=== PATIENT | male | born 1980 | race Caucasian/White ===

== ENCOUNTER 2020-08-06 21:03 | Inpatient (IN) | payer BC, SELFPAY ==
[2020-08-11 02:04] VITALS: BMI 22.8
[2020-08-12 06:00] VITALS: BP 129/62; PULSE 85; RESP 14; TEMP 36.8; O2SAT 97
[2020-08-12 07:00] VITALS: BMI 22.4
[2020-08-12] MEDS: Cholecalciferol (Vitamin D3) 25 MCG TABLET 50 MCG PO (09:09)
[2020-08-12] MEDS: Multivitamin TABLET 1 TAB PO (09:10)
[2020-08-12] MEDS: risperiDONE 1 MG TABLET PO ×2 (09:10→21:05)
[2020-08-12 17:27] VITALS: BP 138/76; PULSE 83; TEMP 37.1
--- NOTE | 2020-08-12 17:56 | P.PNPSI_ITS ---
Assessment & Plan Assessment & Plan (1) Depressed mood: Status: Acute Code(s): R45.89 - Other symptoms and signs involving emotional state Assessment and Plan: Dilip and gunnar' Liaise with family Referrals (2) Suicidal ideation: Status: Acute Code(s): R45.851 - Suicidal ideations Assessment and Plan: Safety evaluation Refer to PHP Greater than 50% of the session was spent on counseling and/or coordination of care Subjective Subjective Date of Service: 08/12/20 Reason For Visit: Adjustment D/O Subjective Notes: Conditional Voluntary Interim History: Long is calmer and he is looking forward to going home. He will attend [facility] and he is excited about this. SW is working with family around ensuring he has no access to guns. Medication Compliance: Yes Side effects from medications: No Attending Groups: Yes Mental Status Exam Mental Status Exam Patient Appearance: Well Grooomed Patient Orientation: Person, Place, Time and Situation Level of Consciousness: Awake and Appropriate Patient Behavior: Appropriate, Passive and Good Eye Contact Mood Description: Apathetic, Withdrawn, Constricted, Depressed and Fearful Affect Description: Apathetic, Depressed, Fearful, Flat, Sad and Apprehensive Patient Cognition Impaired: No Ability to Follow Directions: Excellent Speech Pattern: Clear, Appropriate and Spontaneous Speech Memory Description: Normal for Patient Hallucinations: None Delusions: Not Present Thought Process: Intact Depressive Symptoms: Insomnia, Loss of Int. in Activity, Feelings of Worthle ssness and Hopelessness Judgement: Fair Diagnostics Vital Signs (24Hr): Vital Signs - 24 hr 08/12/20 06:00 08/12/20 17:27 Temperature 98.2 F 98.7 F Pulse Rate 85 83 Respiratory Rate 14 Blood Pressure 129/62 138/76 Pulse Oximetry 97 Body Mass Index 22.4 Labs Results: 08/06/20 15:53 08/06/20 15:53 Labs: Laboratory Results - last 48 hr 08/06/20 08/10/20 08/10/20 15:53 07:59 07:59 Estimat Average Glucose 111 Hemoglobin A1c 5.5 Triglycerides 73 Cholesterol 93 D LDL Cholesterol, Calc 40 HDL Cholesterol 39 Lyme Disease Screen <0.90 Lyme Progressive Test Not indicated Medications Medications Ambulatory Orders Medication Instructions Recorded aspirin 81 mg PO DAILY 08/11/20 atorvastatin 40 mg PO BEDTIME 08/11/20 cholecalciferol (vitamin D3) 50 mcg PO DAILY 08/11/20 multivitamin [Daily Multi-Vitamin] 1 tab PO DAILY 08/11/20 Allergies Allergies Allergy/AdvReac Type Severity Reaction Status Date / Time No Known Allergies Allergy Unverified 07/29/20 15:57 [No Known Allergies*] Inapsen Allergy Unknown Uncoded 07/01/20 00:00
[2020-08-12] MEDS: Atorvastatin Calcium 40 MG TABLET PO (21:05)
[2020-08-12] MEDS: Mirtazapine 15 MG TABLET PO (21:05)
[2020-08-12] MEDS: Aspirin 81 MG TAB.CHEW PO (21:05)
[2020-08-13 06:36] VITALS: BP 112/64; PULSE 67; RESP 14; TEMP 36.4; O2SAT 97
[2020-08-13] MEDS: Cholecalciferol (Vitamin D3) 25 MCG TABLET 50 MCG PO (08:57)
[2020-08-13] MEDS: risperiDONE 1 MG TABLET PO (08:58)
[2020-08-13] MEDS: Multivitamin TABLET 1 TAB PO (08:58)
--- NOTE | 2020-08-13 17:37 | P.DS_ITS ---
DS: Providers Provider Date of admission: 08/06/20 21:03 Primary care physician: Eileen Harris MD Consults: 08/11/20 02:14 Consult to Neurology Routine Consulting Provider: Faviola Rojas Reason for consultation: Acute change in mental status. Severe depression with SI. Paranoia. S/P COV Has provider been notified: Yes 08/11/20 02:18 Consult to Care Team Routine DS: Diagnosis Discharge Diagnosis (1) Depressed mood: Status: Acute (2) Suicidal ideation: Status: Acute Discharge Plan Discharge Anticipated Discharge Date/Time: 08/13/20 14:59 Patient Disposition: Home, Self-Care Referrals: [facility] PHP [Other] (The program is meeting virtually. Please create a [employer] account and call Mary Grajeda at [phone] ext [phone] with the address. She will sent an invite to you [employer] account for the assessment which is scheduled for 08/16/20 at 10AM with a plan to start PHP on 08/17/20 at 9AM ) Eileen Harris MD [Primary Care Provider] - (PLEASE FOLLOW UP WITH PCP) Anais Vyas MD [Physician] - 09/07/20 2:00 pm Discharge Medications: New mirtazapine 15 mg Tablet 15 mg PO BEDTIME Qty: 30 RF: 0 risperidone 1 mg Tablet 1 mg PO BID Qty: 60 RF: 0 Continued multivitamin [Daily Multi-Vitamin] Tablet 1 tab PO DAILY RF: 0 atorvastatin 40 mg Tablet 40 mg PO BEDTIME RF: 0 cholecalciferol (vitamin D3) 25 mcg (1,000 unit) Tablet 50 mcg PO DAILY RF: 0 aspirin 81 mg Tablet,Chewable 81 mg PO DAILY RF: 0 Discharge Orders: Discharge Order (Routine); Ordered 08/13/20 Ordered By: Anais Vyas Diet: advance to your usual diet Activity on Discharge: As tolerated Stand Alone Forms: Community Support Discharge Date/Time: 08/13/20 15:06 Visit Report Forms: Patient Portal Discharge page Care Plan Goals: Go to PHP Stay on medications Health Concerns: Depressed mood Plan of Treatment: PHP Medications
== END 2020-08-13 15:06 | disposition home or self-care (01) | DRG 754 ==
PROVIDERS: Admitting Provider Psychiatry & Neurology Psychiatry; Emergency Provider Emergency Medicine; PCP Internal Medicine; Visit Provider Psychiatry & Neurology Psychiatry
DX: F32.9 Major depressive disorder, single episode, unspecified (principal); R45.851 Suicidal ideations; F43.0 Acute stress reaction; E78.5 Hyperlipidemia, unspecified; Z20.828 Contact with and (suspected) exposure to other viral communicable diseases; Z86.19 Personal history of other infectious and parasitic diseases; Z79.82 Long term (current) use of aspirin; Z79.899 Other long term (current) drug therapy
CPT/HCPCS: 36415; 70551; 80051; 80061; 80076; 80307; 80320; 82565; 82947; 83036; 83735; 84443; 84520; 85025; 85652; 86140; 86618; 99285; U0003

== ENCOUNTER 2020-08-27 12:45 | Outpatient (RCR) | payer BC, SELFPAY ==
--- NOTE | 2020-08-17 12:23 | PC.NURSE ---
Patient is a 40 year old male who started the PHP program today. Patient was referred by [facility] where he was admitted for increase in depressive symptoms with SI and Plan to blow his head off. It was reported that the Care team worked with the patients family in removing guns from patients home. Pt was brought by ambulance to the ED d/t acute mental status changes including patient being non verbal with family and making SI statements. Pt reported to look malnourished and fatigued. 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 Patient also dx with Covid-19 in February 2020. Patient is alert and oriented x4. Calm and cooperative. Denied SI. Gave verbal permission to email a copy of his safety tool to him. Patient agreed to utilize this if feeling unsafe. Also, patient identified going to his family for help if feeling unsafe. Patient stated he is in the program to, feel good about myself . Completed assessement via telephone d/t pandemic.
--- NOTE | 2020-08-17 17:57 | HO.PS.ADMBH ---
HPI Chief Complaint: DEPRESSION Sources of Information: patient interviewed and chart reviewed HPI Narrative: 40 yo male, stepping down from [facility] admission which he reports was helpful. 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 Pt initiated Remeron 15 and Risperdal 1 mg bid. Reports he is tolerating regime and finds it helpful in sx mgt. 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 Currently on FMLA). Unsure what requirements work has for his return, they have sent paperwork to his he believes. Reports sleep is not too bad . The first night home from hospital he was up and down, however this is settling. Appetite is reported as normal . Energy is intact, pt asks if it is OK to hike with colleagues/friends-discussed. Past Psychiatric History: denies Medical Evaluation Reviewed: Yes [facility] Medical History Melanoma Family History: denies Social History: Lives with and children. 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 Reports drinking beer, socially, approximately once per month Trauma History: Affirms without detail Meds/Allergies Meds Home Medications Medication Instructions Recorded Confirmed Type aspirin 81 mg PO DAILY 08/11/20 08/17/20 History atorvastatin 40 mg PO BEDTIME 08/11/20 08/17/20 History cholecalciferol (vitamin D3) 50 mcg PO DAILY 08/11/20 08/17/20 History multivitamin [Daily Multi-Vitamin] 1 tab PO DAILY 08/11/20 08/17/20 History Allergies Allergies Allergy/AdvReac Type Severity Reaction Status Date / Time No Known Allergies Allergy Unverified 07/29/20 15:57 [No Known Allergies*] Inapsen Allergy Unknown Uncoded 07/01/20 00:00 Mental Status Exam Mental Status Exam Patient Orientation: Person, Place, Time and Situation Level of Consciousness: Awake, Appropriate and Alert Patient Behavior: Appropriate, Guarded, Cooperative and Anxious Mood Description: Constricted, Blunted and Apprehensive Affect Description: Constricted, Blunted and Apprehensive Patient Cognition Impaired: No Ability to Follow Directions: Excellent Speech Pattern: Clear, Appropriate and Spontaneous Speech Memory Description: Intact, Immediate Intact and Short Term Intact Hallucinations: None Delusions: Not Present Thought Process: Intact Thought Content: positive for Intact, positive for Logical, positive for Suicidal Ideation (denies) and positive for Homicidal Ideation (denies) Depressive Symptoms: Feelings of Guilt (relating to incident at work) Judgement: Good Judgement and Insight: Intact Assessment & Plan Patient educated on: medication risk/benefits (continue current regime, Risperdal 1 mg bid and Remeron 15 mg HS) and therapeutic strategies (continue PHP. Pt would like to return to work. We will review employer requriements) Informed Consent: understands Reason for continued partial hosp. stay Substantial Risk for: harm to self, inability to function and rapid decompensation Certification I certify that partial hospital treatment is medically necessary due to the symptoms and problems resulting from the patient's mental illness and the failure to treat the patient at the partial hospital level of care would likely result in the patient requiring inpatient psychiatric care which could not be prevented at a less intensive level of care.
--- NOTE | 2020-08-19 16:17 | PC.NURSE ---
I called and spoke to patient. I let him know about his appt with Anais Vyas. He said he already knew about this. I asked how he is doing, and he said he is doing well and would like to return to work as soon as possible. he said he has been engaging in sports-related events with his kids, and going on hikes, despite having not quite 100 percent of the energy he had prior to depressive episode. He reported he is not having any SI.
--- NOTE | 2020-08-20 15:40 | P.PNPSP_ITS ---
Subjective Subjective Date of Service: 08/20/20 Reason For Visit: DEPRESSION Interim History: Pt has asked to be discharged today to return to work on 10/23/20. He emailed [facility] paperwork to development writer. This was reviewed and discussed with team, Dr. Norman and Dr. Nicholas Cee who will meet with pt in out patient psychopharmacology. Call to pt to discuss. 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 I offered to write a letter, indicating his attendance from Aug.17- at the [facility] program to validate participation. I discussed my concern of his symptoms, hospitalization, and passive participation thus far. Pt seemed to understand these concerns and suggested he remain with the [facility] program which he will do. Team concurs. Review of Systems Review of Systems Yes all other systems are reviewed and are negative Mental Status Exam Mental Status Exam Patient Orientation: Person, Place, Time and Situation Level of Consciousness: Awake and Alert Patient Behavior: Guarded, Talkative, Cooperative, Passive and Anxious Mood Description: Withdrawn, Constricted and Blunted Affect Description: Withdrawn, Constricted and Blunted Patient Cognition Impaired: No Ability to Follow Directions: Excellent Speech Pattern: Clear, Impoverished, Appropriate, Spontaneous Speech, Coherent and Soft-Spoken Hallucinations: None Delusions: Not Present Thought Process: Intact Thought Content: positive for Suicidal Ideation (denies) Judgement: Fair Assessment & Plan Patient educated on: therapeutic strategies Informed Consent: understands and further education needed Reason for contiued partial hosp. stay Substantial Risk for: harm to self, harm to others, inability to function and rapid decompensation Certification I certify that partial hospital treatment is medically necessary due to the symptoms and problems resulting from the patient's mental illness and the failure to treat the patient at the partial hospital level of care would likely result in the patient requiring inpatient psychiatric care which could not be prevented at a less intensive level of care. Greater than 50% of the session was spent on counseling and/or coordination of care Discharge Plan Discharge Attending provider: Rosa Hammond Medications: No Action multivitamin [Daily Multi-Vitamin] Tablet 1 tab PO DAILY RF: 0 atorvastatin 40 mg Tablet 40 mg PO BEDTIME RF: 0 cholecalciferol (vitamin D3) 25 mcg (1,000 unit) Tablet 50 mcg PO DAILY RF: 0 aspirin 81 mg Tablet,Chewable 81 mg PO DAILY RF: 0 mirtazapine 15 mg Tablet 15 mg PO BEDTIME Qty: 30 RF: 0 risperidone 1 mg Tablet 1 mg PO BID Qty: 60 RF: 0
--- NOTE | 2020-08-24 16:49 | P.PNPSP_ITS ---
Subjective Subjective Date of Service: 08/24/20 Reason For Visit: DEPRESSION Interim History: Long continues in [facility]. Last week, he asked to return to work. Discussed concerns about this with pt. He decided to continue in [facility]. Today we completed [facility] paperwork for his review, approval and submission to employer. Pt was a full, active participant in that process, well engaged, asking relevant questions. Tentative date of return to work is 09/11/20. Pt will meet with Dr. Vyas on 09/09/20. Pt reports he has been spending time with family and outside. Medication Compliance: Yes Side effects from medications: No Attending Groups: Yes Review of Systems Review of Systems Yes all other systems are reviewed and are negative Psychiatric: Reports no additional psychiatric complaints and Reports suicidal ideation (denies) Mental Status Exam Mental Status Exam Patient Orientation: Person, Place, Time and Situation Level of Consciousness: Awake and Appropriate Patient Behavior: Appropriate Mood Description: Calm and Blunted Affect Description: Calm and Blunted Patient Cognition Impaired: No Ability to Follow Directions: Excellent Speech Pattern: Clear and Appropriate Memory Description: Intact Hallucinations: None Delusions: Not Present Thought Process: Intact Thought Content: positive for Intact Judgement: Good Assessment & Plan Patient educated on: therapeutic strategies Informed Consent: understands and further education needed Reason for contiued partial hosp. stay Substantial Risk for: harm to self, inability to function and rapid decompensation Certification I certify that partial hospital treatment is medically necessary due to the symptoms and problems resulting from the patient's mental illness and the failure to treat the patient at the partial hospital level of care would likely result in the patient requiring inpatient psychiatric care which could not be prevented at a less intensive level of care. Greater than 50% of the session was spent on counseling and/or coordination of care Discharge Plan Discharge Attending provider: Rosa Hammond Additional Instructions: Continue current regime Medications: No Action multivitamin [Daily Multi-Vitamin] Tablet 1 tab PO DAILY RF: 0 atorvastatin 40 mg Tablet 40 mg PO BEDTIME RF: 0 cholecalciferol (vitamin D3) 25 mcg (1,000 unit) Tablet 50 mcg PO DAILY RF: 0 aspirin 81 mg Tablet,Chewable 81 mg PO DAILY RF: 0 mirtazapine 15 mg Tablet 15 mg PO BEDTIME Qty: 30 RF: 0 risperidone 1 mg Tablet 1 mg PO BID Qty: 60 RF: 0
--- NOTE | 2020-08-27 15:14 | PC.NURSE ---
After speaking with patient, I emailed him a list of aftercare options for individual therapy. I let him know that [facility] has a year long wait list for people with BC/BS. Also, I gave him the number for free therapy services from the [facility].
--- NOTE | 2020-08-28 00:11 | P.PNPSP_ITS ---
Subjective Subjective Reason For Visit: DEPRESSION Interim History: Long continues in PHP. Last week, he asked to return to work. Discussed concerns about this with pt. He decided to continue in [facility] Today we completed [facility] paperwork for his review, approval and submission to employer. Pt was a full, active participant in that process, well engaged, asking relevant questions. Tentative date of return to work is 09/11/20. Pt will meet with Dr. Vyas on 09/09/20. Pt reports he has been spending time with family and outside. current note For 08/31/2020 patient future oriented stable states safe for discharge and transition to Dr. Anais fagan his outpatient psychiatrist feels mirtazapine and Risperdal have been helpful no concerns sleep appetite concentration mood have much improved states he is feeling much better no self-harming thoughts Mental Status Exam Mental Status Exam Patient Orientation: Person, Place, Time and Situation Level of Consciousness: Awake and Appropriate Patient Behavior: Appropriate Mood Description: Calm and Blunted Affect Description: Calm and Blunted Patient Cognition Impaired: No Ability to Follow Directions: Excellent Speech Pattern: Clear and Appropriate Memory Description: Intact Assessment & Plan Assessment & Plan (1) Depressed mood: Status: Acute Code(s): R45.89 - Other symptoms and signs involving emotional state Assessment and Plan: pt stble for d/c f/u dr anais fagan Patient educated on: diagnosis and medication risk/benefits Informed Consent: understands Certification I certify that partial hospital treatment is medically necessary due to the symptoms and problems resulting from the patient's mental illness and the failure to treat the patient at the partial hospital level of care would likely result in the patient requiring inpatient psychiatric care which could not be prevented at a less intensive level of care. Greater than 50% of the session was spent on counseling and/or coordination of care Discharge Plan Discharge Attending provider: Suhas Norman Additional Instructions: Continue current regime Medications: No Action multivitamin [Daily Multi-Vitamin] Tablet 1 tab PO DAILY RF: 0 atorvastatin 40 mg Tablet 40 mg PO BEDTIME RF: 0 cholecalciferol (vitamin D3) 25 mcg (1,000 unit) Tablet 50 mcg PO DAILY RF: 0 aspirin 81 mg Tablet,Chewable 81 mg PO DAILY RF: 0 mirtazapine 15 mg Tablet 15 mg PO BEDTIME Qty: 30 RF: 0 risperidone 1 mg Tablet 1 mg PO BID Qty: 60 RF: 0 Referrals: Anais Vyas MD [Physician] - (appt on Sunday08/27/2020 at 10:30 am)
== END 2020-08-27 23:55 | disposition hospice, home (50) ==
LOC: HO.PHPA 12:45
PROVIDERS: Visit Provider Psychiatry & Neurology Psychiatry
DX: F32.9 Major depressive disorder, single episode, unspecified (principal); Z79.899 Other long term (current) drug therapy
CPT/HCPCS: 90853; 99204; 99212; 99213

== ENCOUNTER → 2020-11-01 13:29 | Outpatient (BNVA) | payer BC, SELFPAY | PROVIDERS: PCP Internal Medicine; Visit Provider Internal Medicine Cardiovascular Disease | DX: Z76.89 Persons encountering health services in other specified circumstances (principal) ==

== ENCOUNTER 2021-01-20 09:08 | Outpatient (REF) | payer BC, SELFPAY ==
[2021-01-20 10:41] LABS: Cholesterol 97 mg/dL; HDL Cholesterol 42 mg/dL; LDL Cholesterol Calculated 46 mg/dl; Triglycerides 48 mg/dL
[2021-01-20 11:03] LABS: Vitamin D 25-OH Total 34.9 ng/mL (>30)
[2021-01-21 10:22] LABS: LDL Cholesterol Direct 41 mg/dL (<100)
== END 2021-01-20 09:09 | disposition home or self-care (01) ==
LOC: HO.10HDL 09:08
PROVIDERS: Visit Provider Internal Medicine
DX: E78.41 Elevated Lipoprotein(a) (principal); E78.1 Pure hyperglyceridemia; E55.9 Vitamin D deficiency, unspecified; H02.60 Xanthelasma of unspecified eye, unspecified eyelid
CPT/HCPCS: 36415; 80061; 82306; 83721

== ENCOUNTER → 2021-01-24 08:59 | Outpatient (BNVA) | payer BC, SELFPAY | PROVIDERS: PCP Internal Medicine; Referring Provider Internal Medicine; Visit Provider Internal Medicine ==

== ENCOUNTER 2021-04-30 07:42 | Outpatient (REF) | payer BC, SELFPAY ==
[2021-04-30 08:56] LABS: Cholesterol 97 mg/dL; HDL Cholesterol 42 mg/dL; LDL Cholesterol Calculated 38 mg/dl; Triglycerides 85 mg/dL
[2021-04-30 09:08] LABS: Vitamin D 25-OH Total 36.3 ng/mL (>30)
[2021-05-01 07:46] LABS: LDL Cholesterol Direct 37 mg/dL (<100)
== END 2021-04-30 07:43 | disposition home or self-care (01) ==
LOC: HO.LAB 07:42
PROVIDERS: Internal Medicine; PCP Internal Medicine; Visit Provider Internal Medicine Cardiovascular Disease
DX: E78.5 Hyperlipidemia, unspecified (principal); E55.9 Vitamin D deficiency, unspecified
CPT/HCPCS: 36415; 80061; 82306; 83721

== ENCOUNTER → 2021-05-04 13:56 | Outpatient (BNVA) | payer BC, SELFPAY | PROVIDERS: PCP Internal Medicine; Referring Provider Internal Medicine; Visit Provider Internal Medicine Cardiovascular Disease | DX: E78.41 Elevated Lipoprotein(a) (principal); E78.1 Pure hyperglyceridemia; E78.5 Hyperlipidemia, unspecified; E55.9 Vitamin D deficiency, unspecified; F32.9 Major depressive disorder, single episode, unspecified; Z79.899 Other long term (current) drug therapy | CPT/HCPCS: 93005 ==

== ENCOUNTER → 2022-01-23 08:51 | Outpatient (BNVA) | payer BC, SELFPAY | PROVIDERS: PCP Internal Medicine; Visit Provider Internal Medicine | DX: E78.41 Elevated Lipoprotein(a) (principal); E78.1 Pure hyperglyceridemia; E55.9 Vitamin D deficiency, unspecified; E78.5 Hyperlipidemia, unspecified; H02.60 Xanthelasma of unspecified eye, unspecified eyelid; Z79.899 Other long term (current) drug therapy | CPT/HCPCS: 99212 ==

== ENCOUNTER 2022-01-24 07:35 | Outpatient (REF) | payer BC, SELFPAY ==
[2022-01-24 12:26] LABS: Cholesterol 99 mg/dL; HDL Cholesterol 48 mg/dL; LDL Cholesterol Calculated 37 mg/dl; Triglycerides 72 mg/dL; Vitamin D 25-OH Total 31.2 ng/mL (>30)
[2022-01-25 07:37] LABS: LDL Cholesterol Direct 35 mg/dL (<100)
[2022-01-29 06:26] LABS: Lipoprotein A 197 nmol/L (<75)
== END 2022-01-24 07:36 | disposition home or self-care (01) ==
LOC: HO.WFDLDS 07:35
PROVIDERS: PCP Internal Medicine; Visit Provider Internal Medicine
DX: E55.9 Vitamin D deficiency, unspecified (principal); E78.5 Hyperlipidemia, unspecified
CPT/HCPCS: 36415; 80061; 82306; 83695; 83721

== ENCOUNTER 2022-01-31 13:59 | Inpatient (IN) | payer BC, SELFPAY ==
[2022-01-31 14:08] VITALS: BP 134/84; PULSE 100; RESP 19; TEMP 36.6; O2SAT 98; BMI 24.3
--- NOTE | 2022-01-31 15:00 | ED_ITS ---
HPI - Psych General Chief Complaint: Psychiatric Symptoms Stated Complaint: Crisis Time Seen by Provider: 01/31/22 14:49 Source: patient Mode of arrival: ambulatory Limitations: no limitations History of Present Illness HPI Narrative: 41 years old male came in for evaluation of depression. Patient had a prior hospitalization for depression and SI. 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 Decline hearing voices, no hallucination. Patient himself would like to be evaluated for his symptoms. Patient have a personal gun at home. Related Data Home Medications Medication Instructions Recorded Confirmed aspirin 81 mg chewable tablet 81 mg PO DAILY 08/11/20 01/31/22 multivitamin (Daily Multi-Vitamin) 1 tab PO DAILY 08/11/20 01/31/22 Previous Rx's Medication Instructions Recorded cholecalciferol (vitamin D3) 50 50 mcg PO DAILY 30 Days #30 cap 08/01/21 mcg (2,000 unit) capsule (Vitamin D3) atorvastatin 80 mg tablet 80 mg PO DAILY #60 tab 08/25/21 Allergies Allergy/AdvReac Type Severity Reaction Status Date / Time No Known Allergies Allergy Verified 01/23/22 08:56 [No Known Allergies*] Inapsen Allergy Unknown stiffness Uncoded 01/23/22 08:56 Review of Systems Review of Systems: All other systems are reviewed and are negative Constitutional: Reports as per HPI and Reports no additional constitutional complaints Eyes: Reports as per HPI and Reports no additional eye complaints Reports system reviewed and no additional complaints, except as documented Cardiovascular: Reports as per HPI and Reports no additional cardiovascular complaints Respiratory: Reports as per HPI and Reports no additional respiratory complaints Gastrointestinal: Reports as per HPI and Reports no additional gastrointestinal complaints Genitourinary: Reports no additional female genitourinary complaints Musculoskeletal: Reports no additional musculoskeletal complaints Skin/Breast: Reports system reviewed and no additional complaints, except as docu Psychiatric: Reports no additional psychiatric complaints Endocrine: Reports no additional endocrine complaints Hematologic/Lymphatic: Reports no additional hematologic/lymphatic complaints Allergic/Immunologic: Reports no additional allergic/immunologic complaints Reports system reviewed and no additional complaints, except as documented and Reports Abnormal speech present [facility] Past Medical History Medical History Annual physical exam Depression Elevated lipoprotein A level Hyperlipidemia Hypertriglyceridemia Melanoma Vitamin D deficiency Xanthelasma Surgical History History of tonsillectomy Family History Family History Father No problems noted. Mother No problems noted. Son No problems noted. Daughter No problems noted. 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 Blood pressure normal. Heart rate normal. Respiration rate normal. Temperature normal. Oxygen saturation normal. Appearance: Alert. Oriented X3. No acute distress. Head: Normal external exam. Normocephalic. Atraumatic. No Cerrato signs noted. No raccoon eyes noted Eyes: PERRLA. EOMI. Conjunctiva and sclera normal. Eyelids normal. ENT: TM's Normal. Pharynx normal. Uvula midline. Moist mucous membranes. No trismus noted. No drooling noted. No muffled voice noted. Neck: Normal inspection. Neck supple. FROM. No adenopathy. Thyroid Normal. No meningeal signs. No neck mass noted. CVS: Normal heart rate and rhythm. Heart sound normal. No murmurs noted. Pulses normal throughout. Respiratory: No respiratory distress. Painless inspiration. Breath sounds normal. No wheezes/rales/rhonchi noted. Chest nontender. No accessory muscle usage noted or decreased air movement noted. Abdomen: Soft and nontender. Bowel sounds normal in all 4 quadrants. No distention noted. No organomegaly noted. No visible injury noted. Back: No CVA tenderness. Full range of motion noted. Skin: Skin warm and dry. Normal skin color. Normal skin turgor. No rashes/lesions/lacerations noted. Extremities: No lower extremity edema. Extremities exhibit normal range of motion. Extremities nontender. Neuro: Oriented X 3. Cranial nerve exam: II-XII are grossly intact No motor deficit. No sensory deficit. Reflexes normal. Patient Orientation: Person, Place, Time and Situation Level of Consciousness: Awake, Appropriate and Alert Patient Behavior: Appropriate, Guarded, Cooperative and Anxious Mood Description: Constricted, Blunted and Apprehensive Affect Description: Constricted, Blunted and Apprehensive Patient Cognition Impaired: No Ability to Follow Directions: Excellent Speech Pattern: Clear, Appropriate and Spontaneous Speech Memory Description: Intact, Immediate Intact and Short Term Intact Hallucinations: None Delusions: Not Present Thought Process: Intact Thought Content: positive for Intact, denies Suicidal Ideation, and denies Homicidal Ideation. Judgement: Good Judgement and Insight: Intact Course Course Course Narrative: Physician observation started at 15:30 . Patient placed in physician observation because the patient needed more time for N evaluation, patient's vital sign were stable, patient is alert and oriented , neuro exam unchanged, unremarkable rest of physical exam. Reevaluation(s) Reevaluation #1: Case discussed with N and and bed search is underway. Time: 19:58 [facility] - Psych Medical Records Attestation: I reviewed the patient's medical records. Lab Data Attestation: I reviewed the patient's lab results. Result diagrams: 01/31/22 15:33 01/31/22 15:33 Labs: Lab Results 01/31/22 01/31/22 01/31/22 Range/Units 15:02 15:33 15:33 WBC 8.2 (4.8-10.8) X10*3/uL RBC 5.62 (4.60-5.80) X10*6/uL Hgb 16.0 (14.0-18.0) g/dl Hct 48.8 (42.0-52.0) % MCV 86.8 (80.0-98.0) fL MCH 28.5 (27.0-33.0) pg MCHC 32.8 (31.0-36.0) g/dl RDW 12.3 (11.0-16.0) % Plt Count 252 (160-400) X10*3/uL MPV 10.1 (9.4-12.4) fL Immature Gran % (Auto) 0.2 (0.0-0.4) % Neut % (Auto) 73.8 H (45-73) % Lymph % (Auto) 17.9 L (20-40) % [place] % (Auto) 7.7 (2-11) % Eos % (Auto) 0.2 (0-4) % Baso % (Auto) 0.2 (0-2) % Lymph # (Auto) 1.5 (1.2-4.9) X10*3/uL [place] # (Auto) 0.6 (0.1-1.2) X10*3/uL Eos # (Auto) 0.0 (0.0-0.4) X10*3/uL Baso # (Auto) 0.0 (0.0-0.2) X10*3/uL Abs Immat Gran (auto) 0.02 (0.00-0.03) X10*3/uL Absolute Neuts (auto) 6.0 (2.0-8.3) x10*3/uL Absolute Nucleated RBC 0.000 (0.0-0.012) X10*3/uL Nucleated RBC % (auto) 0.0 (0.0-0.2) /100WBC Sodium 141 (135-145) mmol/L Potassium 4.4 (3.3-5.1) mmol/L Chloride 106 (96-108) mmol/L Carbon Dioxide 26 (22-29) mmol/L Anion Gap 13 (12-20) BUN 17 H (9-16) mg/dL Creatinine 1.01 (0.5-1.4) mg/dL Estim Creat Clear Calc 94.3 Estimated GFR > 60 Random Glucose 104 (60-115) mg/dL Calcium 9.7 (8.4-10.2) mg/dL Magnesium 2.1 (1.6-2.6) mg/dL Lipase 16 (8-78) U/L Urine Opiates Screen (Not Detect) Urine Fentanyl Screen (Not Detect) Ur Barbiturates Screen (Not Detect) Ur Phencyclidine Scrn (Not Detect) Ur Amphetamines Screen (Not Detect) U Benzodiazepines Scrn (Not Detect) Urine Cocaine Screen (Not Detect) U Marijuana (THC) Screen (Not Detect) Ethyl Alcohol mg/dL COVID-19 (DONNIE) Negative (Negative) COVID-19 Clin Com See Note 01/31/22 01/31/22 Range/Units 15:33 15:33 WBC (4.8-10.8) X10*3/uL RBC (4.60-5.80) X10*6/uL Hgb (14.0-18.0) g/dl Hct (42.0-52.0) % MCV (80.0-98.0) fL MCH (27.0-33.0) pg MCHC (31.0-36.0) g/dl RDW (11.0-16.0) % Plt Count (160-400) X10*3/uL MPV (9.4-12.4) fL Immature Gran % (Auto) (0.0-0.4) % Neut % (Auto) (45-73) % Lymph % (Auto) (20-40) % [place] % (Auto) (2-11) % Eos % (Auto) (0-4) % Baso % (Auto) (0-2) % Lymph # (Auto) (1.2-4.9) X10*3/uL [place] # (Auto) (0.1-1.2) X10*3/uL Eos # (Auto) (0.0-0.4) X10*3/uL Baso # (Auto) (0.0-0.2) X10*3/uL Abs Immat Gran (auto) (0.00-0.03) X10*3/uL Absolute Neuts (auto) (2.0-8.3) x10*3/uL Absolute Nucleated RBC (0.0-0.012) X10*3/uL Nucleated RBC % (auto) (0.0-0.2) /100WBC Sodium (135-145) mmol/L Potassium (3.3-5.1) mmol/L Chloride (96-108) mmol/L Carbon Dioxide (22-29) mmol/L Anion Gap (12-20) BUN (9-16) mg/dL Creatinine (0.5-1.4) mg/dL Estim Creat Clear Calc Estimated GFR Random Glucose (60-115) mg/dL Calcium (8.4-10.2) mg/dL Magnesium (1.6-2.6) mg/dL Lipase (8-78) U/L Urine Opiates Screen Not Detected (Not Detect) Urine Fentanyl Screen Not Detected (Not Detect) Ur Barbiturates Screen Not Detected (Not Detect) Ur Phencyclidine Scrn Not Detected (Not Detect) Ur Amphetamines Screen Not Detected (Not Detect) U Benzodiazepines Scrn Not Detected (Not Detect) Urine Cocaine Screen Not Detected (Not Detect) U Marijuana (THC) Screen Not Detected (Not Detect) Ethyl Alcohol < 10 mg/dL COVID-19 (DONNIE) (Negative) COVID-19 Clin Com Discharge Plan Discharge Clinical Impression: Depressed mood, Depression, Suicidal ideation Patient Disposition: Admitted As Inpatient Prescriptions: No Action cholecalciferol (vitamin D3) [Vitamin D3] 50 mcg (2,000 unit) capsule 50 mcg PO DAILY 30 Days Qty: 30 11RF atorvastatin 80 mg tablet 80 mg PO DAILY Qty: 60 3RF multivitamin [Daily Multi-Vitamin] Tablet 1 tab PO DAILY 0RF aspirin 81 mg Tablet,Chewable 81 mg PO DAILY 0RF
[2022-01-31 15:35] LABS: COVID-19 Test Negative (Negative)
--- NOTE | 2022-01-31 15:38 | PC.NURSE ---
supplemental triage note: client self presents saying he has felt fucked up doesnt like myself for several months, finds it hard to articulate to this technical report writer (slow to respond/?poverty of speech). firstly stated to t/w only drug use thc then later stated to doc re: some etoh use. 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 states still has a job . prev dx with depression . contracts for safety. appears dejected.
--- NOTE | 2022-01-31 15:53 | PC.NURSE ---
addendum: noncompliant w medical meds for a few days.
[2022-01-31 15:56] LABS: MANUAL DIFF FLAG NO
[2022-01-31 15:58] LABS: Basophils Percent Auto 0.2 % (0-2); Eosinophils Percent Auto 0.2 % (0-4); Hematocrit 48.8 % (42.0-52.0); Imm Gran Abs Auto 0.02 X10*3/uL (0.00-0.03); Imm Gran Pct Auto 0.2 % (0.0-0.4); Lymphocytes Absolute Auto 1.5 X10*3/uL (1.2-4.9); Lymphocytes Percent Auto 17.9 % (20-40); Mean Corpuscular HGB Conc 32.8 g/dl (31.0-36.0); Mean Corpuscular Hemoglobin 28.5 pg (27.0-33.0); Mean Corpuscular Volume 86.8 fL (80.0-98.0); Mean Platelet Volume 10.1 fL (9.4-12.4); Monocytes Absolute Auto 0.6 X10*3/uL (0.1-1.2); Monocytes Percent Auto 7.7 % (2-11); Neutrophils Percent Auto 73.8 % (45-73); Platelet Count 252 X10*3/uL (160-400); Red Blood Count 5.62 X10*6/uL (4.60-5.80); Red Cell Distribution Width 12.3 % (11.0-16.0); White Blood Count 8.2 X10*3/uL (4.8-10.8)
[2022-01-31 16:12] LABS: Ethanol < 10 mg/dL
[2022-01-31 16:17] LABS: Anion Gap 13 (12-20); Blood Urea Nitrogen 17 mg/dL (9-16); Calcium 9.7 mg/dL (8.4-10.2); Carbon Dioxide 26 mmol/L (22-29); Chloride 106 mmol/L (96-108); Creatinine Clr Calc Pharmacy 94.3; Estimated Glomerular Filt Rate > 60; Glucose Random 104 mg/dL (60-115); Lipase 16 U/L (8-78); Magnesium 2.1 mg/dL (1.6-2.6); Potassium 4.4 mmol/L (3.3-5.1); Sodium 141 mmol/L (135-145)
[2022-01-31 16:18] LABS: Amphetamine Screen Urine Not Detected (Not Detect); Barbiturates, Urine Not Detected (Not Detect); Benzodiazepines Screen Urine Not Detected (Not Detect); Cannabinoid Screen Urine Not Detected (Not Detect); Cocaine Screen Urine Not Detected (Not Detect); Fentanyl, urine Not Detected (Not Detect); Opiate Screen Urine Not Detected (Not Detect); Phencyclidine Screen Urine Not Detected (Not Detect)
[2022-01-31 19:49] VITALS: BP 121/67; PULSE 92; RESP 16; TEMP 37.8; O2SAT 97
[2022-01-31 23:40] VITALS: TEMP 36.8
--- NOTE | 2022-02-01 | ECG_ITS ---
Test Reason : medical clearance Blood Pressure : / mmHG Vent. Rate : 087 BPM Atrial Rate : 087 BPM P-R Int : 136 ms QRS Dur : 076 ms QT Int : 360 ms P-R-T Axes : 077 078 077 degrees QTc Int : 433 ms Normal sinus rhythm Possible Left atrial enlargement Borderline ECG When compared with ECG of 04-AUG-2020 17:58, No significant change was found Referred By: Makenzie Vasquez Electronically Signed By:CRUZITO LUND MD
[2022-02-01 06:12] VITALS: BP 124/87; PULSE 107; RESP 16; TEMP 36.6; O2SAT 98
--- NOTE | 2022-02-01 06:14 | PC.NURSE ---
Patient slept through the night, no distress observed/reported, behavior quiet, isolative, and non concerning, med rec completed/JAN updated, no bathroom use entire shift, patient is pre-accepted to M3 per care team, VSS, will continue to monitor.
--- NOTE | 2022-02-01 07:26 | PC.NURSE ---
patient appears to remain asleep at present respirations are even and unlabored, patient appears in no distress
[2022-02-01] MEDS: Atorvastatin Calcium 80 MG TABLET PO (09:44)
[2022-02-01] MEDS: Multivitamin TABLET 1 TAB PO (09:44)
[2022-02-01] MEDS: Aspirin 81 MG TAB.CHEW PO (09:44)
[2022-02-01] MEDS: Cholecalciferol (Vitamin D3) 25 MCG TABLET 50 MCG PO (09:44)
[2022-02-01 18:26] VITALS: BMI 21.9
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
[2022-02-01 21:19] VITALS: BP 110/75; PULSE 127; RESP 16; TEMP 36.4; O2SAT 96
[2022-02-02 06:00] VITALS: BP 111/67; PULSE 72; RESP 16; TEMP 37.1; O2SAT 97
[2022-02-02 07:00] VITALS: BMI 21.9
[2022-02-02] MEDS: Cholecalciferol (Vitamin D3) 25 MCG TABLET 50 MCG PO (08:58)
[2022-02-02] MEDS: Aspirin 81 MG TAB.CHEW PO (08:58)
[2022-02-02] MEDS: Multivitamin TABLET 1 TAB PO (08:58)
[2022-02-02] MEDS: Atorvastatin Calcium 80 MG TABLET PO (08:58)
[2022-02-02 09:00] LABS: Cholesterol 103 mg/dL; HDL Cholesterol 37 mg/dL; LDL Cholesterol Calculated 54 mg/dl; Triglycerides 63 mg/dL
[2022-02-02 09:17] LABS: Estimated Average Glucose 105 mg/dL; Hemoglobin A1c % 5.3 %
[2022-02-02 09:21] LABS: Thyroid Stimulating Hormone 1.29 uIU/mL (0.32-4.0)
[2022-02-02 09:44] LABS: Folate 17.1 ng/mL (> or = 4.0); Vitamin B12 596 pg/mL (200-900)
[2022-02-02] MEDS: risperiDONE 1 MG TABLET PO ×2 (13:09→21:53)
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
[2022-02-02 18:00] VITALS: BP 124/77; PULSE 83; RESP 18; TEMP 36.7; O2SAT 98
[2022-02-02] MEDS: Mirtazapine 15 MG TABLET PO (21:52)
[2022-02-03 09:07] VITALS: BP 107/63; PULSE 95; RESP 17; TEMP 36.5; O2SAT 97
[2022-02-03] MEDS: Multivitamin TABLET 1 TAB PO (09:17)
[2022-02-03] MEDS: risperiDONE 1 MG TABLET PO ×2 (09:17→20:29)
[2022-02-03] MEDS: Aspirin 81 MG TAB.CHEW PO (09:17)
[2022-02-03] MEDS: Atorvastatin Calcium 80 MG TABLET PO (09:17)
[2022-02-03] MEDS: Cholecalciferol (Vitamin D3) 25 MCG TABLET 50 MCG PO (09:20)
--- NOTE | 2022-02-03 15:04 | P.PNPSI_ITS ---
Subjective Subjective Date of Service: 02/03/22 Reason For Visit: SI Interim History: pt presents as yesterday, PMR, terse. perhaps a bit faster than yesterday and with more content. reports he slept well last night, after his medications restart. feeling more hopeful since restarting meds. 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 discusses use of groups on unit to develop distress tolerance skills to employ in effort to avoid relapsing, potential referral to addiction counselor post-discharge. no change in meds. per staff, isolative, withdrawn. eating and sleeping OK. paranoid. of AH: i'd rather not talk about it. med-compliant. Mental Status Exam Mental Status Exam Narrative: thin, appropriately dressed, adequately groomed. PMR. cooperative. speech decr amount, loudness, tone. incr latency. paucity of thought. no delusions or hallucinations evident. affect blunted, hypo-intense, non-labile. mood depressed. no SI/HI/AVH expressed. Diagnostics Vital Signs (24Hr): Vital Signs - 24 hr 02/02/22 18:00 02/03/22 09:07 Temperature 98.1 F 97.7 F Pulse Rate 83 95 Respiratory Rate 18 17 Blood Pressure 124/77 107/63 Pulse Oximetry 98 97 BMI result Body Mass Index 21.9 Labs Results: 01/31/22 15:33 01/31/22 15:33 Labs: Laboratory Results - last 48 hr 02/02/22 02/02/22 02/02/22 08:16 08:16 08:16 Estimat Average Glucose 105 Hemoglobin A1c % 5.3 Triglycerides 63 Cholesterol 103 LDL Cholesterol, Calc 54 HDL Cholesterol 37 D Vitamin B12 596 Folate 17.1 TSH 1.29 Medications Medications Current Medications Acetaminophen (Acetaminophen 325 Mg Tablet) 650 mg PO Q6H PRN PRN Reason: Headache/Pain Mild Scale (1-3) Al Hydroxide/Mg Hydroxide (Magnesium Hydrox/Alum Hydrox 30 Ml Oral.Susp) 30 ml PO Q6H PRN PRN Reason: Heartburn/Nausea Aspirin (Aspirin 81 Mg Tab.Chew) 81 mg PO DAILY [facility] Last Admin: 02/03/22 09:17 Dose: 81 mg Documented by: Atorvastatin Calcium (Atorvastatin Calcium 80 Mg Tablet) 80 mg PO DAILY [facility] Last Admin: 02/03/22 09:17 Dose: 80 mg Documented by: Hydroxyzine HCl (Hydroxyzine Hcl 25 Mg Tablet) 25 mg PO BEDTIME PRN PRN Reason: Anxiety Magnesium Hydroxide (Milk Of Magnesia 30 Ml Oral.Susp) 30 ml PO DAILY PRN PRN Reason: Constipation Mirtazapine (Mirtazapine 15 Mg Tablet) 15 mg PO BEDTIME [facility] Last Admin: 02/02/22 21:52 Dose: 15 mg Documented by: Multivitamins/Vitamin C (Multivitamin Tablet) 1 tab PO DAILY [facility] Last Admin: 02/03/22 09:17 Dose: 1 tab Documented by: Risperidone (Risperidone 1 Mg Tablet) 1 mg PO BID [facility] Last Admin: 02/03/22 09:17 Dose: 1 mg Documented by: Trazodone HCl (Trazodone Hcl 50 Mg Tablet) 50 mg PO BEDTIME PRN PRN Reason: Insomnia Vitamin D (Cholecalciferol (Vitamin D3) 25 Mcg Tablet) 50 mcg PO DAILY [facility] Last Admin: 02/03/22 09:20 Dose: 50 mcg Documented by: Allergies Allergies Allergy/AdvReac Type Severity Reaction Status Date / Time No Known Allergies Allergy Verified 01/23/22 08:56 [No Known Allergies*] Inapsen Allergy Unknown stiffness Uncoded 01/23/22 08:56 Assessment & Plan Assessment & Plan (1) Major depressive disorder, recurrent, severe with psychotic features: Status: Acute Code(s): F33.3 - Major depressive disorder, recurrent, severe with psychotic symptoms Plan restart prior regimen of risperidone 1 mg BID and remeron 15 mg QHS. I spent __25____ minutes with the patient and/or on the patient floor today, greater than?50% of which was spent counseling/coordinating care. Reason for contiued inpatient stay Substantial Risk for: harm to self, inability to function and rapid decompensation
[2022-02-03 18:00] VITALS: BP 112/63; PULSE 75; RESP 18; TEMP 36.7; O2SAT 99
[2022-02-03] MEDS: Mirtazapine 15 MG TABLET PO (20:29)
[2022-02-03] MEDS: Milk of Magnesia 30 ML ORAL.SUSP PO (20:30)
[2022-02-04] MEDS: risperiDONE 1 MG TABLET PO ×2 (08:55→21:39)
[2022-02-04] MEDS: Atorvastatin Calcium 80 MG TABLET PO (08:55)
[2022-02-04] MEDS: Multivitamin TABLET 1 TAB PO (08:55)
[2022-02-04] MEDS: Aspirin 81 MG TAB.CHEW PO (08:55)
[2022-02-04] MEDS: Cholecalciferol (Vitamin D3) 25 MCG TABLET 50 MCG PO (08:55)
[2022-02-04 09:00] VITALS: BP 117/69; PULSE 93; RESP 16; TEMP 36.6; O2SAT 96
--- NOTE | 2022-02-04 16:25 | P.PNPSI_ITS ---
Subjective Subjective Date of Service: 02/04/22 Reason For Visit: SI Subjective Notes: Conditional Voluntary Interim History: met with patient and discussed with Nursing. Had visit with mom last night. Has been pretty isolative and withdrawn. Patient reports that he is still feeling depressed but slightly less. Reports suicidal thoughts are less intense and less frequent. Denies active SI. Reports also feeling less hopeless. Sleep is okay. Is self loathing and believes he should have listened to people more her took other people's advice. Validation and support given around same. Appetite okay. Is engaging in groups. No medication concerns. Medication Compliance: Yes Side effects from medications: No Attending Groups: Yes Review of Systems Acute medical concerns: No Review of Systems Review of Systems Constipated Mental Status Exam Mental Status Exam Narrative: pleasant and engaged. Appropriately dressed. Hygiene okay. Flat and depresse d affect. Intermittent SI but none active. Reports this is less frequent and intense. Feels supported. No HI. No overt psychosis. Insight and judgment okay Diagnostics Vital Signs (24Hr): Vital Signs - 24 hr 02/03/22 18:00 02/04/22 09:00 Temperature 98.0 F 97.9 F Pulse Rate 75 93 Respiratory Rate 18 16 Blood Pressure 112/63 117/69 Pulse Oximetry 99 96 BMI result Body Mass Index 21.9 Labs Results: 01/31/22 15:33 01/31/22 15:33 Medications Medications Current Medications Acetaminophen (Acetaminophen 325 Mg Tablet) 650 mg PO Q6H PRN PRN Reason: Headache/Pain Mild Scale (1-3) Al Hydroxide/Mg Hydroxide (Magnesium Hydrox/Alum Hydrox 30 Ml Oral.Susp) 30 ml PO Q6H PRN PRN Reason: Heartburn/Nausea Aspirin (Aspirin 81 Mg Tab.Chew) 81 mg PO DAILY [facility] Last Admin: 02/04/22 08:55 Dose: 81 mg Documented by: Atorvastatin Calcium (Atorvastatin Calcium 80 Mg Tablet) 80 mg PO DAILY [facility] Last Admin: 02/04/22 08:55 Dose: 80 mg Documented by: Hydroxyzine HCl (Hydroxyzine Hcl 25 Mg Tablet) 25 mg PO BEDTIME PRN PRN Reason: Anxiety Magnesium Hydroxide (Milk Of Magnesia 30 Ml Oral.Susp) 30 ml PO DAILY PRN PRN Reason: Constipation Last Admin: 02/03/22 20:30 Dose: 30 ml Documented by: Mirtazapine (Mirtazapine 15 Mg Tablet) 15 mg PO BEDTIME [facility] Last Admin: 02/03/22 20:29 Dose: 15 mg Documented by: Multivitamins/Vitamin C (Multivitamin Tablet) 1 tab PO DAILY [facility] Last Admin: 02/04/22 08:55 Dose: 1 tab Documented by: Risperidone (Risperidone 1 Mg Tablet) 1 mg PO BID [facility] Last Admin: 02/04/22 08:55 Dose: 1 mg Documented by: Trazodone HCl (Trazodone Hcl 50 Mg Tablet) 50 mg PO BEDTIME PRN PRN Reason: Insomnia Vitamin D (Cholecalciferol (Vitamin D3) 25 Mcg Tablet) 50 mcg PO DAILY [facility] Last Admin: 02/04/22 08:55 Dose: 50 mcg Documented by: Allergies Allergies Allergy/AdvReac Type Severity Reaction Status Date / Time No Known Allergies Allergy Verified 01/23/22 08:56 [No Known Allergies*] Inapsen Allergy Unknown stiffness Uncoded 01/23/22 08:56 Assessment & Plan Assessment & Plan (1) Major depressive disorder, recurrent, severe with psychotic features: Status: Acute Code(s): F33.3 - Major depressive disorder, recurrent, severe with psychotic symptoms Assessment and Plan: appears to be showing some response to current treatment regimen as per patient. With therefore maintain Remeron 15 mg at bedtime. Plan restart prior regimen of risperidone 1 mg BID and remeron 15 mg QHS. I spent minutes with the patient and/or on the patient floor today, greater than?50% of which was spent counseling/coordinating care. Patient educated on: diagnosis and medication risk/benefits Reason for contiued inpatient stay Substantial Risk for: harm to self
[2022-02-04 19:52] VITALS: BP 104/64; PULSE 72; RESP 16; TEMP 36.8; O2SAT 97
[2022-02-04] MEDS: Mirtazapine 15 MG TABLET PO (21:39)
[2022-02-05 08:30] VITALS: BP 116/64; PULSE 89; RESP 16; TEMP 36.1; O2SAT 97
[2022-02-05] MEDS: Multivitamin TABLET 1 TAB PO (09:07)
[2022-02-05] MEDS: Aspirin 81 MG TAB.CHEW PO (09:07)
[2022-02-05] MEDS: Atorvastatin Calcium 80 MG TABLET PO (09:07)
[2022-02-05] MEDS: Cholecalciferol (Vitamin D3) 25 MCG TABLET 50 MCG PO (09:07)
[2022-02-05] MEDS: risperiDONE 1 MG TABLET PO ×2 (09:08→21:45)
--- NOTE | 2022-02-05 14:13 | P.PNPSI_ITS ---
Subjective Subjective Date of Service: 02/05/22 Reason For Visit: SI Subjective Notes: Conditional Voluntary Interim History: met with patient and discussed with Nursing. Still reports that he is still feeling depressed but slightly less. Reports suicidal thoughts are less intense and less frequent. Denies active SI. Reports also feeling less hopeless. Appe tite slightly better. Feeling slightly more comfortable in groups. Sleep is okay. No medication concerns. Medication Compliance: Yes Side effects from medications: No Attending Groups: Yes Review of Systems Acute medical concerns: No Review of Systems Review of Systems unremarkable Mental Status Exam Mental Status Exam Narrative: pleasant and engaged. Appropriately dressed. Hygiene okay. Flat and depressed affect. Intermittent SI but none active. Reports this is less frequent and intense. Feels supported. No HI. No overt psychosis. Insight and judgment okay Diagnostics Vital Signs (24Hr): Vital Signs - 24 hr 02/04/22 19:52 02/05/22 08:30 Temperature 98.2 F 97.0 F Pulse Rate 72 89 Respiratory Rate 16 16 Blood Pressure 104/64 116/64 Pulse Oximetry 97 97 BMI result Body Mass Index 21.9 Labs Results: 01/31/22 15:33 01/31/22 15:33 Medications Medications Current Medications Acetaminophen (Acetaminophen 325 Mg Tablet) 650 mg PO Q6H PRN PRN Reason: Headache/Pain Mild Scale (1-3) Al Hydroxide/Mg Hydroxide (Magnesium Hydrox/Alum Hydrox 30 Ml Oral.Susp) 30 ml PO Q6H PRN PRN Reason: Heartburn/Nausea Aspirin (Aspirin 81 Mg Tab.Chew) 81 mg PO DAILY [facility] Last Admin: 02/05/22 09:07 Dose: 81 mg Documented by: Atorvastatin Calcium (Atorvastatin Calcium 80 Mg Tablet) 80 mg PO DAILY [facility] Last Admin: 02/05/22 09:07 Dose: 80 mg Documented by: Hydroxyzine HCl (Hydroxyzine Hcl 25 Mg Tablet) 25 mg PO BEDTIME PRN PRN Reason: Anxiety Magnesium Hydroxide (Milk Of Magnesia 30 Ml Oral.Susp) 30 ml PO DAILY PRN PRN Reason: Constipation Last Admin: 02/03/22 20:30 Dose: 30 ml Documented by: Mirtazapine (Mirtazapine 15 Mg Tablet) 15 mg PO BEDTIME [facility] Last Admin: 02/04/22 21:39 Dose: 15 mg Documented by: Multivitamins/Vitamin C (Multivitamin Tablet) 1 tab PO DAILY [facility] Last Admin: 02/05/22 09:07 Dose: 1 tab Documented by: Polyethylene Glycol (Polyethylene Glycol 3350 17 Gm Powd.Pack) 17 gm PO DAILY PRN PRN Reason: moderate constipation Risperidone (Risperidone 1 Mg Tablet) 1 mg PO BID [facility] Last Admin: 02/05/22 09:08 Dose: 1 mg Documented by: Senna (Senna [place] Extract Oral Syrup 15 Ml Syrup) 15 ml PO BEDTIME [facility] Last Admin: 02/04/22 21:39 Dose: 15 ml Documented by: Trazodone HCl (Trazodone Hcl 50 Mg Tablet) 50 mg PO BEDTIME PRN PRN Reason: Insomnia Vitamin D (Cholecalciferol (Vitamin D3) 25 Mcg Tablet) 50 mcg PO DAILY [facility] Last Admin: 02/05/22 09:07 Dose: 50 mcg Documented by: Allergies Allergies Allergy/AdvReac Type Severity Reaction Status Date / Time No Known Allergies Allergy Verified 01/23/22 08:56 [No Known Allergies*] Inapsen Allergy Unknown stiffness Uncoded 01/23/22 08:56 Assessment & Plan Assessment & Plan (1) Major depressive disorder, recurrent, severe with psychotic features: Status: Acute Code(s): F33.3 - Major depressive disorder, recurrent, severe with psychotic symptoms Assessment and Plan: appears to be showing some response to current treatment regimen as per patient. With therefore maintain Remeron 15 mg at bedtime. Plan restart prior regimen of risperidone 1 mg BID and remeron 15 mg QHS. 02/05: no changes to primary teams plan I spent minutes with the patient and/or on the patient floor today, greater than?50% of which was spent counseling/coordinating care. Patient educated on: medication risk/benefits Reason for contiued inpatient stay Substantial Risk for: harm to self
[2022-02-05 18:00] VITALS: BP 118/68; PULSE 64; RESP 18; TEMP 36.8; O2SAT 99
[2022-02-05] MEDS: Mirtazapine 15 MG TABLET PO (21:45)
[2022-02-06 10:07] VITALS: BP 117/58; PULSE 104; RESP 16; TEMP 36.8; O2SAT 98
[2022-02-06] MEDS: Multivitamin TABLET 1 TAB PO (10:08)
[2022-02-06] MEDS: Cholecalciferol (Vitamin D3) 25 MCG TABLET 50 MCG PO (10:08)
[2022-02-06] MEDS: Aspirin 81 MG TAB.CHEW PO (10:09)
[2022-02-06] MEDS: risperiDONE 1 MG TABLET PO ×2 (10:09→21:06)
[2022-02-06] MEDS: Atorvastatin Calcium 80 MG TABLET PO (10:09)
--- NOTE | 2022-02-06 13:50 | HO.PSYCHPN ---
Subjective Subjective Date of Service: 02/06/22 Reason For Visit: SI Interim History: pt denies AVH. he does report being down on myself. his mood is a little more stable. his appetite is improved. denies SI today, states it is fading away. discuss discharge, hoping for prior to the weekend. per staff, slept 8 hours overnight. pleasant, quiet. anx/dep 5/10. future-oriented. states he is sleeping well. good PO intake. denies SI/HI/AVH. med-compliant. Mental Status Exam Mental Status Exam Narrative: thin, appropriately dressed, adequately groomed. PMR. cooperative. speech decr amount, loudness, tone. incr latency. paucity of thought. no delusions or hallucinations evident. affect blunted, hypo-intense, non-labile. down on myself. no SI. no HI/AVH expressed. Diagnostics Vital Signs (24Hr): Vital Signs - 24 hr 02/05/22 18:00 02/06/22 10:07 Temperature 98.2 F 98.3 F Pulse Rate 64 104 H Respiratory Rate 18 16 Blood Pressure 118/68 117/58 L Pulse Oximetry 99 98 BMI result Body Mass Index 21.9 Labs Results: 01/31/22 15:33 01/31/22 15:33 Medications Medications Current Medications Acetaminophen (Acetaminophen 325 Mg Tablet) 650 mg PO Q6H PRN PRN Reason: Headache/Pain Mild Scale (1-3) Al Hydroxide/Mg Hydroxide (Magnesium Hydrox/Alum Hydrox 30 Ml Oral.Susp) 30 ml PO Q6H PRN PRN Reason: Heartburn/Nausea Aspirin (Aspirin 81 Mg Tab.Chew) 81 mg PO DAILY [facility] Last Admin: 02/06/22 10:09 Dose: 81 mg Documented by: Atorvastatin Calcium (Atorvastatin Calcium 80 Mg Tablet) 80 mg PO DAILY [facility] Last Admin: 02/06/22 10:09 Dose: 80 mg Documented by: Hydroxyzine HCl (Hydroxyzine Hcl 25 Mg Tablet) 25 mg PO BEDTIME PRN PRN Reason: Anxiety Magnesium Hydroxide (Milk Of Magnesia 30 Ml Oral.Susp) 30 ml PO DAILY PRN PRN Reason: Constipation Last Admin: 02/03/22 20:30 Dose: 30 ml Documented by: Mirtazapine (Mirtazapine 15 Mg Tablet) 15 mg PO BEDTIME [facility] Last Admin: 02/05/22 21:45 Dose: 15 mg Documented by: Multivitamins/Vitamin C (Multivitamin Tablet) 1 tab PO DAILY [facility] Last Admin: 02/06/22 10:08 Dose: 1 tab Documented by: Polyethylene Glycol (Polyethylene Glycol 3350 17 Gm Powd.Pack) 17 gm PO DAILY PRN PRN Reason: moderate constipation Risperidone (Risperidone 1 Mg Tablet) 1 mg PO BID [facility] Last Admin: 02/06/22 10:09 Dose: 1 mg Documented by: Senna (Senna [place] Extract Oral Syrup 15 Ml Syrup) 15 ml PO BEDTIME [facility] Last Admin: 02/05/22 21:45 Dose: 15 ml Documented by: Trazodone HCl (Trazodone Hcl 50 Mg Tablet) 50 mg PO BEDTIME PRN PRN Reason: Insomnia Vitamin D (Cholecalciferol (Vitamin D3) 25 Mcg Tablet) 50 mcg PO DAILY [facility] Last Admin: 02/06/22 10:08 Dose: 50 mcg Documented by: Allergies Allergies Allergy/AdvReac Type Severity Reaction Status Date / Time No Known Allergies Allergy Verified 01/23/22 08:56 [No Known Allergies*] Inapsen Allergy Unknown stiffness Uncoded 01/23/22 08:56 Assessment & Plan Assessment & Plan (1) Major depressive disorder, recurrent, severe with psychotic features: Status: Acute Code(s): F33.3 - Major depressive disorder, recurrent, severe with psychotic symptoms Assessment and Plan: appears to be showing some response to current treatment regimen as per patient. Will therefore maintain Remeron 15 mg at bedtime. Plan restarted prior regimen of risperidone 1 mg BID and remeron 15 mg QHS. improving slightly day by day. I spent __25____ minutes with the patient and/or on the patient floor today, greater than?50% of which was spent counseling/coordinating care. Reason for contiued inpatient stay Substantial Risk for: harm to self, inability to function and rapid decompensation
[2022-02-06 18:00] VITALS: BP 116/68; PULSE 81; RESP 18; TEMP 36.6; O2SAT 98
[2022-02-06] MEDS: Mirtazapine 15 MG TABLET PO (21:06)
[2022-02-07 08:00] VITALS: BP 153/76; PULSE 101; RESP 14; TEMP 36.7; O2SAT 94
[2022-02-07] MEDS: risperiDONE 1 MG TABLET PO ×2 (08:50→20:46)
[2022-02-07] MEDS: Aspirin 81 MG TAB.CHEW PO (08:50)
[2022-02-07] MEDS: Cholecalciferol (Vitamin D3) 25 MCG TABLET 50 MCG PO (08:50)
[2022-02-07] MEDS: Multivitamin TABLET 1 TAB PO (08:50)
[2022-02-07] MEDS: Atorvastatin Calcium 80 MG TABLET PO (08:50)
--- NOTE | 2022-02-07 10:56 | HO.PSYCHPN ---
Subjective Subjective Date of Service: 02/07/22 Reason For Visit: SI Interim History: pt found resting in his bed mid-morning. amenable to interview, calm, cooperative. denies SI. mood down still, but feeling increasingly ready to get back to his family. asks about whether he should change careers, says he feels like he has ruined relationships at work. he then generalizes that to his whole life. suggests his views are overly colored by depression at the moment and that if his feeling were restricted to work it might be more meaningful. encourages pt to not make big decisions until through the depression. pt expresses agreement. per staff, eating, sleeping, taking meds. terse. mild constipation. mederate anx/dep. denies AVH. no issues. Mental Status Exam Mental Status Exam Narrative: thin, appropriately dressed, adequately groomed. PMR. cooperative. speech decr amount, loudness, tone. incr latency. paucity of thought. no delusions or hallucinations evident. affect blunted, hypo-intense, non-labile. down still. no SI. no HI/AVH expressed. Diagnostics Vital Signs (24Hr): Vital Signs - 24 hr 02/06/22 18:00 Temperature 97.8 F Pulse Rate 81 Respiratory Rate 18 Blood Pressure 116/68 Pulse Oximetry 98 BMI result Body Mass Index 21.9 Labs Results: 01/31/22 15:33 01/31/22 15:33 Medications Medications Current Medications Acetaminophen (Acetaminophen 325 Mg Tablet) 650 mg PO Q6H PRN PRN Reason: Headache/Pain Mild Scale (1-3) Al Hydroxide/Mg Hydroxide (Magnesium Hydrox/Alum Hydrox 30 Ml Oral.Susp) 30 ml PO Q6H PRN PRN Reason: Heartburn/Nausea Aspirin (Aspirin 81 Mg Tab.Chew) 81 mg PO DAILY [facility] Last Admin: 02/07/22 08:50 Dose: 81 mg Documented by: Atorvastatin Calcium (Atorvastatin Calcium 80 Mg Tablet) 80 mg PO DAILY [facility] Last Admin: 02/07/22 08:50 Dose: 80 mg Documented by: Hydroxyzine HCl (Hydroxyzine Hcl 25 Mg Tablet) 25 mg PO BEDTIME PRN PRN Reason: Anxiety Magnesium Hydroxide (Milk Of Magnesia 30 Ml Oral.Susp) 30 ml PO DAILY PRN PRN Reason: Constipation Last Admin: 02/03/22 20:30 Dose: 30 ml Documented by: Mirtazapine (Mirtazapine 15 Mg Tablet) 15 mg PO BEDTIME [facility] Last Admin: 02/06/22 21:06 Dose: 15 mg Documented by: Multivitamins/Vitamin C (Multivitamin Tablet) 1 tab PO DAILY [facility] Last Admin: 02/07/22 08:50 Dose: 1 tab Documented by: Polyethylene Glycol (Polyethylene Glycol 3350 17 Gm Powd.Pack) 17 gm PO DAILY PRN PRN Reason: moderate constipation Risperidone (Risperidone 1 Mg Tablet) 1 mg PO BID [facility] Last Admin: 02/07/22 08:50 Dose: 1 mg Documented by: Senna (Senna [place] Extract Oral Syrup 15 Ml Syrup) 15 ml PO BEDTIME [facility] Last Admin: 02/06/22 21:06 Dose: 15 ml Documented by: Trazodone HCl (Trazodone Hcl 50 Mg Tablet) 50 mg PO BEDTIME PRN PRN Reason: Insomnia Vitamin D (Cholecalciferol (Vitamin D3) 25 Mcg Tablet) 50 mcg PO DAILY [facility] Last Admin: 02/07/22 08:50 Dose: 50 mcg Documented by: Allergies Allergies Allergy/AdvReac Type Severity Reaction Status Date / Time No Known Allergies Allergy Verified 01/23/22 08:56 [No Known Allergies*] Inapsen Allergy Unknown stiffness Uncoded 01/23/22 08:56 Assessment & Plan Assessment & Plan (1) Major depressive disorder, recurrent, severe with psychotic features: Status: Acute Code(s): F33.3 - Major depressive disorder, recurrent, severe with psychotic symptoms Assessment and Plan: appears to be showing some response to current treatment regimen as per patient. Will therefore maintain Remeron 15 mg at bedtime. Plan restarted prior regimen of risperidone 1 mg BID and remeron 15 mg QHS. improving slightly day by day. I spent __25____ minutes with the patient and/or on the patient floor today, greater than?50% of which was spent counseling/coordinating care. Reason for contiued inpatient stay Substantial Risk for: harm to self, inability to function and rapid decompensation
[2022-02-07 20:30] VITALS: BP 124/84; PULSE 85; RESP 18; TEMP 36.6; O2SAT 99
[2022-02-07] MEDS: Mirtazapine 15 MG TABLET PO (20:46)
[2022-02-08 06:00] VITALS: BP 102/76; PULSE 79; RESP 16; TEMP 36.7; O2SAT 95
[2022-02-08] MEDS: Cholecalciferol (Vitamin D3) 25 MCG TABLET 50 MCG PO (08:40)
[2022-02-08] MEDS: Aspirin 81 MG TAB.CHEW PO (08:40)
[2022-02-08] MEDS: Atorvastatin Calcium 80 MG TABLET PO (08:40)
[2022-02-08] MEDS: Multivitamin TABLET 1 TAB PO (08:40)
[2022-02-08] MEDS: risperiDONE 1 MG TABLET PO ×2 (08:40→20:33)
--- NOTE | 2022-02-08 15:13 | P.PNPSI_ITS ---
Subjective Subjective Date of Service: 02/08/22 Reason For Visit: SI Interim History: pt seen in sensory room, where he was sitting in the dark with door open. his presentation is unchanged. blunted, PMR, hypo-verbal. continues to feel his mood has improved, however, and wanting to discharge tomorrow. states he had a good visit with his yesterday evening. per staff, active, appropriate. appears depressed. poor eye contact, guarded, evasive in contact mtg. dep/anx 5/10. anxious re going home. visited with . eating and sleeping well. Mental Status Exam Mental Status Exam Narrative: thin, appropriately dressed, adequately groomed. PMR. cooperative. speech decr amount, loudness, tone. incr latency. paucity of thought. no delusions or hallucinations evident. affect blunted, hypo-intense, non-labile. mood improved from admission. no SI/HI/AVH expressed. Diagnostics Vital Signs (24Hr): Vital Signs - 24 hr 02/07/22 20:30 Temperature 98 F Pulse Rate 85 Respiratory Rate 18 Blood Pressure 124/84 Pulse Oximetry 99 BMI result Body Mass Index 21.9 Labs Results: 01/31/22 15:33 01/31/22 15:33 Medications Medications Current Medications Acetaminophen (Acetaminophen 325 Mg Tablet) 650 mg PO Q6H PRN PRN Reason: Headache/Pain Mild Scale (1-3) Al Hydroxide/Mg Hydroxide (Magnesium Hydrox/Alum Hydrox 30 Ml Oral.Susp) 30 ml PO Q6H PRN PRN Reason: Heartburn/Nausea Aspirin (Aspirin 81 Mg Tab.Chew) 81 mg PO DAILY [facility] Last Admin: 02/08/22 08:40 Dose: 81 mg Documented by: Atorvastatin Calcium (Atorvastatin Calcium 80 Mg Tablet) 80 mg PO DAILY [facility] Last Admin: 02/08/22 08:40 Dose: 80 mg Documented by: Hydroxyzine HCl (Hydroxyzine Hcl 25 Mg Tablet) 25 mg PO BEDTIME PRN PRN Reason: Anxiety Magnesium Hydroxide (Milk Of Magnesia 30 Ml Oral.Susp) 30 ml PO DAILY PRN PRN Reason: Constipation Last Admin: 02/03/22 20:30 Dose: 30 ml Documented by: Mirtazapine (Mirtazapine 15 Mg Tablet) 15 mg PO BEDTIME [facility] Last Admin: 02/07/22 20:46 Dose: 15 mg Documented by: Multivitamins/Vitamin C (Multivitamin Tablet) 1 tab PO DAILY [facility] Last Admin: 02/08/22 08:40 Dose: 1 tab Documented by: Polyethylene Glycol (Polyethylene Glycol 3350 17 Gm Powd.Pack) 17 gm PO DAILY PRN PRN Reason: moderate constipation Risperidone (Risperidone 1 Mg Tablet) 1 mg PO BID [facility] Last Admin: 02/08/22 08:40 Dose: 1 mg Documented by: Senna (Senna [place] Extract Oral Syrup 15 Ml Syrup) 15 ml PO BEDTIME [facility] Last Admin: 02/07/22 20:46 Dose: 15 ml Documented by: Trazodone HCl (Trazodone Hcl 50 Mg Tablet) 50 mg PO BEDTIME PRN PRN Reason: Insomnia Vitamin D (Cholecalciferol (Vitamin D3) 25 Mcg Tablet) 50 mcg PO DAILY [facility] Last Admin: 02/08/22 08:40 Dose: 50 mcg Documented by: Allergies Allergies Allergy/AdvReac Type Severity Reaction Status Date / Time No Known Allergies Allergy Verified 01/23/22 08:56 [No Known Allergies*] Inapsen Allergy Unknown stiffness Uncoded 01/23/22 08:56 Assessment & Plan Assessment & Plan (1) Major depressive disorder, recurrent, severe with psychotic features: Status: Acute Code(s): F33.3 - Major depressive disorder, recurrent, severe with psychotic symptoms Assessment and Plan: appears to be showing some response to current treatment regimen as per p atient. Will therefore maintain Remeron 15 mg at bedtime. Plan restarted prior regimen of risperidone 1 mg BID and remeron 15 mg QHS. improving slightly day by day. discharge tomorrow. I spent ___20___ minutes with the patient and/or on the patient floor today, greater than?50% of which was spent counseling/coordinating care. Reason for contiued inpatient stay Substantial Risk for: harm to self, inability to function and rapid decompensation
[2022-02-08] MEDS: Mirtazapine 15 MG TABLET PO (20:33)
[2022-02-08 20:40] VITALS: BP 119/74; PULSE 90; RESP 16; TEMP 36.9; O2SAT 98
[2022-02-09 07:00] VITALS: BMI 22.4
[2022-02-09 08:48] VITALS: BP 111/59; PULSE 92; RESP 16; TEMP 36.8; O2SAT 94
[2022-02-09] MEDS: risperiDONE 1 MG TABLET PO (08:51)
[2022-02-09] MEDS: Atorvastatin Calcium 80 MG TABLET PO (08:51)
[2022-02-09] MEDS: Cholecalciferol (Vitamin D3) 25 MCG TABLET 50 MCG PO (08:51)
[2022-02-09] MEDS: Multivitamin TABLET 1 TAB PO (08:51)
[2022-02-09] MEDS: Aspirin 81 MG TAB.CHEW PO (08:51)
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
--- NOTE | 2022-02-09 15:53 | PC.NURSE ---
Patient alert and oriented x4. Patient is in agreement with discharge instructions and plan. Patient denies SI/HI/AH/VH. Patient reports being anxious about going home, but is looking forward to leaving. Patient feels safe to go home. Patient denies physical complaints.
== END 2022-02-09 15:48 | disposition home or self-care (01) | DRG 751 ==
LOC: HO.ED 19:58 → HO.PADLT16 02-01 15:19
PROVIDERS: Emergency Medicine Emergency Medical Services; Social Worker; Admitting Provider Psychiatry & Neurology Psychiatry; Emergency Provider Emergency Medicine; PCP Internal Medicine; Visit Provider Psychiatry & Neurology Psychiatry
DX: F33.3 Major depressive disorder, recurrent, severe with psychotic symptoms (principal); R45.851 Suicidal ideations; Z91.14 Patient's other noncompliance with medication regimen; Z20.822 Contact with and (suspected) exposure to COVID-19; Z79.82 Long term (current) use of aspirin; Z79.899 Other long term (current) drug therapy
CPT/HCPCS: 36415; 80048; 80061; 80307; 82077; 82607; 82746; 83036; 83690; 83735; 84443; 85025; 87635; 93005; 99285

== ENCOUNTER → 2022-07-10 09:04 | Outpatient (BNVA) | payer BC, SELFPAY | PROVIDERS: PCP Internal Medicine; Referring Provider Internal Medicine; Visit Provider Internal Medicine Cardiovascular Disease | DX: E78.5 Hyperlipidemia, unspecified (principal) | CPT/HCPCS: 93005 ==

== ENCOUNTER 2023-01-31 09:47 | Outpatient (REF) | payer BC, SELFPAY ==
[2023-01-31 13:00] LABS: Cholesterol 96 mg/dL; HDL Cholesterol 37 mg/dL; LDL Cholesterol Calculated 46 mg/dl; Triglycerides 66 mg/dL
[2023-01-31 13:28] LABS: Vitamin D 25-OH Total 42.4 ng/mL (>30)
[2023-02-02 00:38] LABS: LDL Cholesterol Direct 40 mg/dL (<100)
[2023-02-05 16:03] LABS: Lipoprotein A 269 nmol/L (<75)
== END 2023-01-31 09:48 | disposition home or self-care (01) ==
LOC: HO.WFDLDS 09:47
PROVIDERS: Visit Provider Internal Medicine
DX: E78.5 Hyperlipidemia, unspecified (principal); E55.9 Vitamin D deficiency, unspecified
CPT/HCPCS: 36415; 80061; 82306; 83695; 83721

== ENCOUNTER → 2023-02-22 14:08 | Outpatient (BNVA) | payer BC, SELFPAY | PROVIDERS: PCP Internal Medicine; Visit Provider Internal Medicine | DX: Z13.89 Encounter for screening for other disorder (principal) ==

== ENCOUNTER 2023-07-18 12:39 | Outpatient (AMB) | payer BC, SELFPAY ==
[2023-07-18 12:43] VITALS: BP 118/70; PULSE 78; BMI 25.7
--- NOTE | 2023-07-18 12:43 | A.OFFVIS_ITS ---
Intake Vital Signs 07/18/23 12:43 Height 5 ft 9 in Weight 173 lb 11.588 oz BMI 25.7 BP 118/70 Blood Pressure Location Lt brachial Position Sitting Pulse 78 Pulse Source Monitor Intake Visit Reasons: 1 yr f/up Intake Note: 1 year follow up with EKG. 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 He is seeing Dr. Benjamin and was referred for coronary calcium score testing but did not get approval. He has been on atorvastatin and fish oil. He said he had the changes life status significantly which improved his triglyceride levels. He has no exertional chest pain or shortness of breath. He is quite active and does CrossFit training without any symptoms. He had carotid studies showed mild plaque. He does not smoke or drink. No recreational drug abuse. No significant family history in his siblings. He said his biological father who he was not been in close contact with at 50 of unknown cause. His coronary calcium score was 8. He has been on high-intensity statin therapy in baby aspirin. Denying any chest discomfort shortness of breath. Blood workup from January 2022 was reviewed. Overall clinically stable. 07/18/23: He returns for follow-up. He is saying he occasionally hikes without any symptoms. He has been taking medications regularly. Recent blood workup showed lp (a) 269, HDL 37, LDL 46, direct LDL 40, cholesterol 96, triglycerides 66. He is taking atorvastatin 80 mg once a day. Clinically he has no symptoms. [facility] Medical History Annual physical exam Depressed mood Depression Elevated lipoprotein A level Hyperlipidemia Hypertriglyceridemia Melanoma Vitamin D deficiency Xanthelasma Surgical History History of tonsillectomy Family History Father No problems noted. Mother No problems noted. Son No problems noted. Daughter No problems noted. 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, 12) Housing: House Do you presently have visiting nurse or other home services: No Alcohol intake: current Alcohol intake frequency: a few times a month Alcohol type: beer Patient Tobacco Use Status: Never used Tobacco e-Cigarette/Vaping Use: Never Used Substance Use Type: Marijuana service: No Current occupational status: employed Sexual orientation: Straight/Heterosexual Review of Systems Const Denies weakness ENT Denies dizziness Card Denies chest pain, Denies chest pain with activity, Denies syncope, Denies rapid heart rate, Denies pedal edema, Denies edema, Denies leg edema, Denies lightheadedness, Denies palpitations, Denies dyspnea, Denies dyspnea on exertion and Denies orthopnea Resp Denies cough, Denies dyspnea and Denies dyspnea on exertion GI Denies hematochezia and Denies change in stool character Musc Denies abnormal gait, Denies muscle cramps, Denies muscle weakness, Denies numbness, Denies radiating pain into limb and Denies tingling Neuro Denies abnormal gait, Denies dizziness, Denies syncope, Denies numbness, Denies tingling and Denies weakness Endo Denies palpitations Physical Exam Vital Signs: Last Vital Signs Pulse 78 07/18/23 12:43 BP 118/70 07/18/23 12:43 BMI result Body Mass Index 25.7 GENERAL APPEARANCE: in no acute distress, well developed, well nourished. NECK/THYROID: no carotid bruit, no jugular venous distention. SKIN: Xanthelasmas. HEART: no murmurs, regular rate and rhythm, S1, S2 normal. LUNGS: clear to auscultation bilaterally. ABDOMEN: normal, bowel sounds present, soft, nontender, nondistended. EXTREMITIES: no clubbing, cyanosis, or edema. PERIPHERAL PULSES: equal. NEUROLOGIC: nonfocal, alert and oriented. PSYCH: mood/affect full range. Assessment & Plan Assessment & Plan (1) Elevated lipoprotein A level: Code(s): E78.41 - Elevated Lipoprotein(a) Plan Pleasant 43 gentleman here for follow-up. He has elevated lipoprotein a level and was referred to us by Endocrinology. He has been on atorvastatin 80 mg once a day. His LDL level is 40. His last lp a level is 269. He previously had coronary calcium testing which was 4. I will check the date of the coronary calcium score and I think we should repeat it within 3-5 years to see if there is any significant progression. I will get carotid ultrasound duplex to see any progression of plaque in the carotids. If in fact he has progression of plaque or coronary calcium score is higher than I think we should try to drive down the lp (a) level. I have explained to the patient that the guidelines are still not clear about how to manage this situation because we do not have long-term data and usually statins are recommended in situation which usually raise the lp (a). He will continue to see us once a year. Currently he is asymptomatic and does not need stress testing. Thank you for allowing me to participate in the care of your patient. Please feel free to contact me if you have any questions. Orders: Orders CRP High Sensitivity Today E78.41 - Elevated Lipoprotein(a) US carotid duplex BI Today E78.41 - Elevated Lipoprotein(a) Coding Level of Care Code Est Pt Level 4 (06879) Diagnoses Elevated lipoprotein A level E78.41
== END 2023-07-18 13:08 | disposition home or self-care (01) ==
PROVIDERS: PCP Internal Medicine; Referring Provider Internal Medicine; Visit Provider Internal Medicine Cardiovascular Disease
DX: E78.41 Elevated Lipoprotein(a) (principal)
CPT/HCPCS: 93010; 99214

== ENCOUNTER → 2023-07-18 12:39 | Outpatient (BNVA) | payer BC, SELFPAY | PROVIDERS: PCP Internal Medicine; Referring Provider Internal Medicine; Visit Provider Internal Medicine Cardiovascular Disease | DX: E78.41 Elevated Lipoprotein(a) (principal); Z79.899 Other long term (current) drug therapy | CPT/HCPCS: 93005 ==

== ENCOUNTER 2023-07-23 09:24 | Outpatient (REF) | payer BC, SELFPAY | END 2023-07-23 09:25 | disposition home or self-care (01) | LOC: HO.WFDLDS 09:24 | PROVIDERS: Visit Provider Internal Medicine Cardiovascular Disease | DX: Z13.89 Encounter for screening for other disorder (principal) ==

== ENCOUNTER 2023-08-01 09:48 | Outpatient (REF) | payer BC, SELFPAY ==
--- NOTE | ~2023-08-01 | US_ITS ---
EXAMINATION: US EXTRACRANIAL CAROTID DUPLEX, BILATERAL CLINICAL INFORMATION: Elevated lipoprotein A. COMPARISON: Carotid ultrasound 10/14/2019. TECHNIQUE: Real-time ultrasound and Doppler techniques (integrating B-mode 2-D vascular images, Doppler spectral analysis and color-flow Doppler imaging) were utilized to interrogate the extracranial carotid arteries, the vertebral arteries and proximal subclavian arteries bilaterally. The degree of stenosis is determined by criteria similar to NASCET. FINDINGS: Right Side: 1. There is minimal atherosclerotic plaque seen in the bifurcation/proximal ICA region. 2. The common carotid artery PSV proximally is 111 cm/s and distally 96 cm/s. 3. The proximal internal carotid artery velocities are 70 cm/s systolic and 22 cm/s diastolic. 4. The proximal external carotid artery PSV is 106 cm/s. 5. The vertebral artery shows antegrade flow. 6. The subclavian artery waveforms are normal. Left Side: 1. There is minimal atherosclerotic plaque seen in the bifurcation/proximal ICA region. 2. The common carotid artery PSV proximally is 143 cm/s and distally 89 cm/s. 3. The proximal internal carotid artery velocities are 62 cm/s systolic and 22 cm/s diastolic. 4. The proximal external carotid artery PSV is 81 cm/s. 5. The vertebral artery shows antegrade flow. 6. The subclavian artery waveforms are normal. US/US carotid duplex BI IMPRESSION: 1. RIGHT: Minimal, non-hemodynamically significant stenosis of the proximal right internal carotid artery corresponding to a 0-49% stenosis by velocity criteria. 2. LEFT: Minimal, non-hemodynamically significant stenosis of the proximal left internal carotid artery corresponding to a 0-49% stenosis by velocity criteria. 3. There is no change in the category severity of disease when compared to the previous study dated 10/14/2019.
== END 2023-08-01 09:49 | disposition home or self-care (01) ==
LOC: HO.US 09:48
PROVIDERS: PCP Internal Medicine; Visit Provider Internal Medicine Cardiovascular Disease
DX: E78.41 Elevated Lipoprotein(a) (principal)
CPT/HCPCS: 93880

== ENCOUNTER 2023-10-17 08:21 | Outpatient (AMB) | payer BC, SELFPAY ==
[2023-10-17 08:30] VITALS: BP 108/64; PULSE 84; O2SAT 98; BMI 26.3
--- NOTE | 2023-10-17 08:30 | MHC.PC.OV ---
Vital Signs 10/17/23 08:30 Height 5 ft 9 in Weight 178 lb BMI 26.3 BP 108/64 Blood Pressure Location Rt brachial Position Sitting Pulse 84 Pulse Source Pulse Oximeter Pulse Oximetry (%) 98 Oxygen Delivery Method Room Air Intake Visit Reasons: PHY Intake Note: Pt is here today for his PE Allergies Inapsen Allergy (Unknown, Uncoded 10/17/23 08:31) stiffness Medication List - Last Reconciled 10/17/23 by Eileen Harris MD aspirin 81 mg PO DAILY atorvastatin 80 mg PO DAILY 90 days cholecalciferol (vitamin D3) (Vitamin D3) 50 mcg PO DAILY mirtazapine 15 mg PO BEDTIME 30 days multivitamin (Daily Multi-Vitamin tablet) 1 tab PO DAILY risperidone 1 mg PO DAILY Tobacco use date assessed: 10/17/23 Dental Screening Dental Screen Date: 10/17/23 Did you have a dental visit in the last 12 months?: Yes Did you have a dental problem in the last 6 months where you did not have access to dental care?: No Was dental information given to patient?: Patient has dentist HPI PHY HPI Details Pt presents for PE. PFSH Medical History Xanthelasma Vitamin D deficiency Hypertriglyceridemia Elevated lipoprotein A level Annual physical exam Hyperlipidemia Depression Melanoma Depressed mood Surgical History History of tonsillectomy Family History Father No problems noted. Mother No problems noted. Son No problems noted. Daughter No problems noted. 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 1. Little interest or pleasure in doing things: not at all 2. Feeling down, depressed, or hopeless: not at all 3. Trouble falling or staying asleep, or sleeping too much: several days 4. Feeling tired or having little energy: not at all 5. Poor appetite or overeating: not at all 6. Feeling bad about yourself - or that you are a failure or have let yourself or your family down: not at all 7. Trouble concentrating on things, such as reading the newspaper or watching television: not at all 8. Moving or speaking so slowly that other people could have noticed. Or the opposite - being so fidgety or restless that you have been moving around a lot more than usual: not at all 9. Thoughts that you would be better off or of hurting yourself in some way: not at all Total score: 1 Depression Screening Interpretation: Negative Depression Screening Done: Yes 38359 - PHQ-9 Billing: Patient declined-do not bill Source: Developed by Drs. Narciso Flores, Stacey Chopra, Manuel Ventura and colleagues, with an educational soraya from [employer]. Thrive Questionnaire Date Thrive assessed: 10/19/21 I am a: Patient What is your living situation today?: I have a steady place to live Within the past 12 months, did the food you bought not last and you didn't have the money to get more?: Never true Within the past 12 months, did you worry whether your food would run out before you got money to buy more?: Never true Do you have trouble paying for medicines?: No Do you have trouble getting transportation to medical appointments?: No Do you have trouble paying your heating and electricity bill?: No Do you have trouble taking care of your child, family member or friend?: No Do you have trouble with day-to-day activities such as bathing, preparing meals, shopping, managing finances, etc.?: No Are you currently unemployed and looking for a job?: No Are you interested in more education?: No Please select the resources that you would like help with: None AUDIT C Alcohol Use Questionnaire (AUDIT-C) 1. How often do you have a drink containing alcohol?: 2-4 times a month 2. How many drinks containing alcohol do you have on a typical day when you are drinking?: 1 or 2 3. How often do you have six or more drinks on one occasion?: Never Total Score: 2 MONTY-7 AMB Questionnaire MONTY-7 Date MONTY - 7 assessed: 10/17/23 Feeling nervous, anxious, or on edge: 1 = Several days Not being able to stop or control worryin = Not at all Worrying too much about different things: 1 = Several days Trouble relaxin = Not at all Being so restless that it is hard to sit still: 0 = Not at all Becoming easily annoyed or irritable: 0 = Not at all Feeling afraid as if something awful might happen: 0 = Not at all Total MONTY-7 score (0-4 normal; 5-9 mild; 10-14 moderate; 15-21 severe): 2 Source: Developed by Drs. Narciso Flores, Stacey Chopra, Manuel Ventura and colleagues, with an educational soraya from [employer]. Review of Systems Const All systems reviewed & are unremarkable except as noted in HPI and below Reports no additional complaints Eyes Reports no additional complaints ENT Reports no additional complaints Card Reports no additional complaints Resp Reports no additional complaints GI Reports no additional complaints Reports no additional complaints Physical exam (Primary Care) Vital Signs: Last Vital Signs Pulse 84 10/17/23 08:30 BP 108/64 10/17/23 08:30 Pulse Ox 98 10/17/23 08:30 Oxygen Delivery Method Room Air 10/17/23 08:30 BMI result Body Mass Index 26.3 Tobacco/Smoking Status: Tobacco use Status Tobacco use date assessed 10/17/23 10/17/23 08:36 Patient Tobacco Use Status Never used Tobacco 10/17/23 08:36 e-Cigarette/Vaping Use Never Used 10/17/23 08:36 PHQ-9: PHQ-9 Score PHQ-9: Total score 1 10/17/23 08:59 Depression Screening Interpretation: Negative Thrive Assessment: Date of Thrive Assessment Date Thrive assessed 10/19/21 10/17/23 08:36 Const General: no acute distress HENMT Head: Yes normal to inspection Ears: hearing grossly normal bilaterally General nose exam: Normal external nose present Mouth: Normal oral and palatal mucosa present Throat: Yes posterior oropharynx normal Eyes General: appearance normal, both eyes and all related structures Neck Neck: Yes no lymphadenopathy and Yes supple Resp Effort & Inspection: normal respiratory effort Auscultation: clear to auscultation bilaterally Cardio Rhythm: regular rhythm Heart sounds: S1 normal heart sound present and S2 normal heart sound present GI Inspection: Yes normal to inspection Palpation (GI): Soft to palpation Percussion: Yes normal to percussion Auscultation: normal bowel sounds Assessment and Plan Assessment & Plan (1) Vitamin D deficiency: Code(s): E55.9 - Vitamin D deficiency, unspecified Plan: cint supplement (2) Elevated lipoprotein A level: Comment: f/u with [facility] cardiology, on high dose statin, Code(s): E78.41 - Elevated Lipoprotein(a) Plan: cont Atorvastatin (3) Hypertriglyceridemia: Code(s): E78.1 - Pure hyperglyceridemia (4) Annual physical exam: Code(s): Z00.00 - Encounter for general adult medical examination without abnormal findings Plan: well balanced diet, regular exercise, colonoscopy declined, Cologuard ordered Orders: Orders LDL Cholesterol Direct Today E55.9 - Vitamin D deficiency, unspecified, E78.1 - Pure hyperglyceridemia, E78.41 - Elevated Lipoprotein(a), Z00.00 - Encounter for general adult medical examination without abnormal findings Comprehensive [place]. Panel Fast Today E55.9 - Vitamin D deficiency, unspecified, E78.1 - Pure hyperglyceridemia, E78.41 - Elevated Lipoprotein(a), Z00.00 - Encounter for general adult medical examination without abnormal findings Complete Blood Count Auto Diff Today E55.9 - Vitamin D deficiency, unspecified, E78.1 - Pure hyperglyceridemia, E78.41 - Elevated Lipoprotein(a), Z00.00 - Encounter for general adult medical examination without abnormal findings Lipid Panel Today E55.9 - Vitamin D deficiency, unspecified, E78.1 - Pure hyperglyceridemia, E78.41 - Elevated Lipoprotein(a), Z00.00 - Encounter for general adult medical examination without abnormal findings Lipoprotein A Today E55.9 - Vitamin D deficiency, unspecified, E78.1 - Pure hyperglyceridemia, E78.41 - Elevated Lipoprotein(a), Z00.00 - Encounter for general adult medical examination without abnormal findings TSH reflex Free T4 Today E55.9 - Vitamin D deficiency, unspecified, E78.1 - Pure hyperglyceridemia, E78.41 - Elevated Lipoprotein(a), Z00.00 - Encounter for general adult medical examination without abnormal findings Referrals Cologuard Test Z12.11 - Encounter for screening for malignant neoplasm of colon, Z12.12 - Encounter for screening for malignant neoplasm of rectum Medications: Refilled cholecalciferol (vitamin D3) (Vitamin D3) 50 mcg PO DAILY 90 caps 3RF Coding Level of Care Code Est Pt Prev Care 40-64y(99261) Diagnoses Vitamin D deficiency E55.9 Elevated lipoprotein A level E78.41 Hypertriglyceridemia E78.1 Annual physical exam Z00.00
== END 2023-10-17 08:59 | disposition home or self-care (01) ==
PROVIDERS: PCP Internal Medicine; Visit Provider Internal Medicine
DX: E55.9 Vitamin D deficiency, unspecified (principal); E78.41 Elevated Lipoprotein(a); E78.1 Pure hyperglyceridemia; Z00.00 Encounter for general adult medical examination without abnormal findings
CPT/HCPCS: 99396

== ENCOUNTER 2023-10-17 09:03 | Outpatient (REF) | payer BC, SELFPAY ==
[2023-10-17 11:19] LABS: MANUAL DIFF FLAG NO
[2023-10-17 11:33] LABS: Basophils Percent Auto 0.4 % (0-2); Eosinophils Absolute Auto 0.2 X10*3/uL (0.0-0.4); Eosinophils Percent Auto 2.8 % (0-4); Hematocrit 45.6 % (42.0-52.0); Hemoglobin 14.9 g/dl (14.0-18.0); Imm Gran Abs Auto 0.02 X10*3/uL (0.00-0.03); Imm Gran Pct Auto 0.3 % (0.0-0.4); Lymphocytes Absolute Auto 2.5 X10*3/uL (1.2-4.9); Lymphocytes Percent Auto 34.2 % (20-40); Mean Corpuscular HGB Conc 32.7 g/dl (31.0-36.0); Mean Corpuscular Hemoglobin 28.7 pg (27.0-33.0); Mean Corpuscular Volume 87.7 fL (80.0-98.0); Mean Platelet Volume 10.6 fL (9.4-12.4); Monocytes Absolute Auto 0.7 X10*3/uL (0.1-1.2); Monocytes Percent Auto 9.5 % (2-11); Neutrophils Absolute Auto 3.8 x10*3/uL (2.0-8.3); Neutrophils Percent Auto 52.8 % (45-73); Platelet Count 234 X10*3/uL (160-400); Red Cell Distribution Width 12.4 % (11.0-16.0); White Blood Count 7.2 X10*3/uL (4.8-10.8)
[2023-10-17 12:00] LABS: Alanine Aminotransferase 23 U/L (0-40); Albumin Level 4.2 g/dL (3.5-5.0); Alkaline Phosphatase 66 U/L (39-117); Anion Gap 9 (12-20); Aspartate Amino Transferase 27 U/L (5-37); Bilirubin Total 0.9 mg/dL (0.0-1.0); Blood Urea Nitrogen 17 mg/dL (9-16); Calcium 9.3 mg/dL (8.4-10.2); Carbon Dioxide 31 mmol/L (22-29); Chloride 105 mmol/L (96-108); Cholesterol 106 mg/dL (<200); Estimated Glomerular Filt Rate > 60; Glucose Fasting 92 mg/dL (60-99); HDL Cholesterol 41 mg/dL (>40); LDL Cholesterol Calculated 43 mg/dL (<100); Potassium 3.8 mmol/L (3.3-5.1); Sodium 141 mmol/L (135-145); Total Protein 7.3 g/dL (6.5-8.0); Triglycerides 112 mg/dL (<150)
[2023-10-17 12:18] LABS: TSH reflex Free T4 3.72 uIU/mL (0.32-4.0)
[2023-10-18 06:44] LABS: LDL Cholesterol Direct 39 mg/dL (<100)
[2023-10-21 09:14] LABS: Lipoprotein A 230 nmol/L (<75)
== END 2023-10-17 09:04 | disposition home or self-care (01) ==
LOC: HO.HMGCLDS 09:03
PROVIDERS: PCP Internal Medicine; Visit Provider Internal Medicine
DX: Z00.00 Encounter for general adult medical examination without abnormal findings (principal); E55.9 Vitamin D deficiency, unspecified; E78.41 Elevated Lipoprotein(a); E78.1 Pure hyperglyceridemia
CPT/HCPCS: 36415; 80053; 80061; 83695; 83721; 84443; 85025

== ENCOUNTER 2024-07-01 18:47 | Emergency (ER) | payer BC, SELFPAY ==
--- NOTE | 2024-07-01 19:32 | PC.NURSE ---
Addendum entered by Rita Jeffrey 07/01/24 19:42: c-collar also placed by EMS Original Note: Late entry: Pt presented to ED via EMS: story from EMS pt called for EMS at 1726 and asked for help , time frame is not clear, gap of time inbetween. [place] at bottom [place] tower (tower approx 50 feet up). Pt was found unresponsive and not breathing by family, CPR started. EMS reported they arrived at 1745. EMS interventions as follow: Epi 1:[id number] X10, IO left humeral head, bilat needle decompressions due to no lung sounds, ETT 7.5 26 @ lip. Pt initially found in PEA, then asystole for EMS. EMS reported there was a report that pt said over the phone that he thinks he broke both his legs.
--- NOTE | 2024-07-01 19:38 | PC.NURSE ---
Late entry: EMS arrived 1847, CPR in progress, no michelle on 1848 pt on hospital bed, pulse/rhythm check, asystole/ no pulse 1849 20G in left AC 1850 Epi via IV 1mg, 1L NS infused (started by EMS) 1850 pulse/rhythm check. asystole/ no pulse 1851 asystole/no pulse confirmed with ultrasound by provider, END OF EVENT
--- NOTE | 2024-07-01 19:40 | PC.NURSE ---
Addendum entered by Rita Jeffrey 07/01/24 20:35: Correction: no lac noted to posterior head in reeval Original Note: Late entry: Pt cleaned and changed. Finding: purple discoloration to back, laceration noted on posterior head, minor scraps, crepitus noted to chest. Pts silver wedding band given to family.
--- NOTE | 2024-07-01 20:10 | MHC.EDTECH ---
CALLED ME OFFICE AT 0736PM. SPOKE TO BEULAH, SHE STATED THAT SHE WILL CALLBACK DUE TO THEIR HIGH CALL VOLUMES. BEULAH CALLED BACK AT 0802PM. I TRANSFERRED IT TO DR CALLOWAY.
--- NOTE | 2024-07-01 20:16 | ED.CPR ---
HPI - CPR General Chief Complaint: Cardiac Arrest/CPR Stated Complaint: CARDIAC ARREST Time Seen by Provider: 07/01/24 19:30 Source: EMS Mode of arrival: EMS Limitations: other History of Present Illness ED Provider: Dr. Kortney Farris HPI narrative: - the patient comes to the emergency room via EMS, CPR in progress. According to EMS, around 17:00, the patient called his family saying that he was in a bad place . - at 17:26, patient called 911, stating that he believes that he broke his legs and also stating that he was in a bad place. Per EMS, the patient went through the [facility] department. However, the patient did not disclose where he was - patient is family was desperately trying to find him. Eventually they found him in [place] at the top of a hill at the bottom of 50-70 foot hour. Bystanders were doing CPR. EMS was called again and redirected to [place] - EMS arrived at the scene at 17:45, CPR was started by EMS, 20 minutes of CPR were done. Patient was continuously in PEA. Overall, from the time that EMS arrived to the time that they were able to reach the hospital, patient had received 10 epinephrine, patient was intubated, to decompression needles were inserted, 1 on each side of the chest for pneumothorax. - On arrival to the ED, patient was in asystole. Two rounds of CPR were done, when epinephrine given - fast exam showed a significant amount of fluid/blood in the abdomen, no cardiac activity. - Time of was called at 18:52 Related Data Home Medications ?Medication ?Instructions ?Recorded ?Confirmed aspirin 81 mg chewable tablet 81 mg PO DAILY 08/11/20 10/17/23 multivitamin (Daily Multi-Vitamin 1 tab PO DAILY 08/11/20 10/17/23 tablet) risperidone 1 mg tablet 1 mg PO DAILY 07/10/22 10/17/23 Previous Rx's ?Medication ?Instructions ?Recorded mirtazapine 15 mg tablet 15 mg PO BEDTIME 30 days #30 tabs 02/09/22 cholecalciferol (vitamin D3) 50 50 mcg PO DAILY #90 caps 10/17/23 mcg (2,000 unit) capsule (Vitamin D3) atorvastatin 80 mg tablet 80 mg PO DAILY #90 tabs 02/26/24 Allergies Allergy/AdvReac Type Severity Reaction Status Date / Time Inapsen Allergy Unknown stiffness Uncoded 10/17/23 08:31 Review of Systems Review of Systems: Yes Unobtainable due to mental condition PMFSH Past Medical History Medical History Xanthelasma Vitamin D deficiency Hypertriglyceridemia Elevated lipoprotein A level Annual physical exam Hyperlipidemia Depression Melanoma Depressed mood Surgical History History of tonsillectomy Family History Family History Father No problems noted. Mother No problems noted. Son No problems noted. Daughter No problems noted. 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, , 2 children (10, 12) Housing: House Do you presently have visiting nurse or other home services: No Alcohol intake: current Alcohol intake frequency: a few times a month Alcohol type: beer Patient Tobacco Use Status: Never used Tobacco e-Cigarette/Vaping Use: Never Used Substance Use Type: Marijuana Advance Directives: No Advance Directives Information Provided: No service: No Current occupational status: employed Sexual orientation: Straight/Heterosexual Cognitive needs: No Hearing needs: No Vision needs: No Physical Exam Const: Other: Appearance: CPR in progress, unresponsive Eyes: fixed, dilated, unresponsive to light ENT: ET tube in place, moderate amount of blood coming out from the ET tube Neck: on C-spine precautions CVS: asystole, on bed side US: no cardiac activity Respiratory: intubated, inaudible breath sounds. They are to decompression tubes, 1 on each side of the chest Abdomen: distended, +FAST Skin: mottled, significant amount of crepitus over chest neck, upper midline lower back and scrotum Extremities: legs do not seem fractured Neuro: unresponsive Psych: unresponsive Medical Decision Making Medical Decision Making MDM Narrative: - time of was called at 18:52 - PD officers/ investigators at bedside - patient's parents and in the family room, I spoke to them, aware of the situation. - I discussed the patient with the medical assistant float, patient has been accepted. Case [id number], Soraida Heller Differential Diagnosis Differential Diagnoses: The differential diagnosis associated with the presentation includes ( suicide attempt, depression) Discharge Plan Discharge Clinical Impression: Cardiac arrest, Suicide Patient Disposition: Prescriptions: No Action atorvastatin 80 mg tablet 80 mg PO DAILY Qty: 90 3RF multivitamin [Daily Multi-Vitamin] Tablet 1 tab PO DAILY aspirin 81 mg Tablet,Chewable 81 mg PO DAILY mirtazapine 15 mg Tablet 15 mg PO BEDTIME 30 Days Qty: 30 0RF cholecalciferol (vitamin D3) [Vitamin D3] 50 mcg (2,000 unit) capsule 50 mcg PO DAILY Qty: 90 3RF risperidone 1 mg tablet 1 mg PO DAILY Print Language: Qatari
--- NOTE | 2024-07-01 20:35 | PC.NURSE ---
Late entry: [facility] contacted around 1919, information given. Case accepted.
== END 2024-07-01 22:37 | disposition expired ==
PROVIDERS: Emergency Provider Emergency Medicine
DX: I46.9 Cardiac arrest, cause unspecified (principal); R45.851 Suicidal ideations; Z79.899 Other long term (current) drug therapy
CPT/HCPCS: 96374; 99285; J0171